=== PATIENT | female | born 1940 | race African-American/Black ===

== ENCOUNTER 2017-08-03 13:33 | Outpatient (CLI) | payer MEDICARE ==
--- NOTE | 2017-08-03 15:43 | RAD ---
RIGHT KNEE FOUR VIEWS: 08/03/17 HISTORY: Right knee pain. FINDINGS/IMPRESSION: Comparison made with exam of 05/01/05. Marked degenerative changes are present with interval worsening since the comparative study. No acute fracture, dislocation or bony destruction is identified. POS: [facility]
--- NOTE | 2017-08-03 15:45 | RAD ---
LEFT KNEE FOUR VIEWS: 08/03/17 HISTORY: Left knee pain. FINDINGS/IMPRESSION: There are marked degenerative changes in the left knee with interval worsening since 05/01/05. No acu te fracture, dislocation or bony destruction is identified. POS: [facility]
== END 2017-08-03 13:34 | disposition home or self-care (01) ==
LOC: RAD-FRANK 13:33
PROVIDERS: ATTEND Internal Medicine
DX: M17.0 Bilateral primary osteoarthritis of knee (principal)

== ENCOUNTER 2018-04-17 20:30 | Outpatient (CLI) | payer MEDICARE | END 2018-04-17 20:31 | disposition home or self-care (01) | LOC: SLEEPLAB 20:30 | PROVIDERS: ATTEND Internal Medicine Pulmonary Disease | DX: G47.33 Obstructive sleep apnea (adult) (pediatric) (principal); R06.83 Snoring; G47.00 Insomnia, unspecified; E66.9 Obesity, unspecified; Z68.41 Body mass index [BMI] 40.0-44.9, adult | CPT/HCPCS: 95811 ==

== ENCOUNTER 2018-04-20 19:07 | Emergency (ER) | payer MEDICARE, OTHER ==
[2018-04-20 19:48] LABS: #Eosinphils 0.2 thou/uL (0.0-0.7); #Lymphocytes 1.7 thou/uL (1.20-3.40); #Monocytes 0.9 thou/uL (0.11-0.59); #Neutrophils 5.3 thou/uL (1.40-6.50); %Basophils 0.3 % (0.0-1.0); %Lymphocytes 21.2 % (21.0-51.0); %Monocytes 10.5 % (0.0-10.0); %Neutrophils 64.9 % (42.0-75.0); Hemoglobin 8.9 g/dL (12.0-16.0); Mean Corpuscular HGB CONC 31.8 g/dL (32.0-36.0); Mean Corpuscular Hemoglobin 38.2 pg (27.0-31.0); Mean Platelet Volume 7.1 fL (7.4-10.4); Platelet Count 228 thou/uL (130-400); RBC Distribution Width 13.9 % (11.5-14.5); Red Blood Cell (RBC) Count 2.33 mill/uL (4.20-5.40); White Blood Cell (WBC) Count 8.2 thou/uL (4.8-10.8)
--- NOTE | 2018-04-20 19:59 | RAD ---
AP VIEW CHEST: 04/20/18 HISTORY: Sudden right upper quadrant pain. AP view chest is obtained on 04/20/18. Comparison made to previous exam of 01/28/17. AP view chest demonstrates cardiomegaly. Pulmonary vascular congestion is seen. No evidence of effusi ons, pneumonia or pneumothorax seen. 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 IMPRESSION: Cardiomegaly and pulmonary vascular congestion. POS: [facility]
[2018-04-20 20:03] LABS: ALT (SGPT) Less than 7 U/L (8-55); AST (SGOT) 10 U/L (5-34); Albumin 3.8 g/dL (3.4-4.8); Alkaline Phosphatase 90 U/L (40-150); Anion Gap 9 mmol/L (10-20); BUN (Urea Nitrogen) 29 mg/dL (9.8-20.1); Bilirubin, Total 0.9 mg/dL (0.2-1.2); Calc. Creatinine Clearance 0 mL/min (70-130); Calcium 8.5 mg/dL (7.8-10.44); Carbon Dioxide 25 mmol/L (23-31); Chloride 108 mmol/L (98-107); Estimated GFR-MDRD 29; Globulin 3.3 g/dL (2.4-3.5); Glucose 118 mg/dL (83-110); Lipase 31 U/L (8-78); Potassium 4.4 mmol/L (3.5-5.1); Protein, Total 7.1 g/dL (6.0-8.3); Sodium 138 mmol/L (136-145)
[2018-04-20 20:08] LABS: CKMB 0.8 ng/mL (0-6.6); Troponin I Less than 0.010 ng/mL (< 0.028)
[2018-04-20 20:19] LABS: Bilirubin Negative (Negative); Blood, Urine Small (Negative); Clarity CLOUDY (Clear); Glucose, Urine (Dipstick) Negative (Negative); Leukocyte Small (Negative); Nitrite Negative (Negative); Protein, Urine (Dipstick) Trace mg/dL (Neg-Trace); Specific Gravity, Urine 1.013 (1.002-1.036); pH, Urine 5.5 (5.0-9.0)
[2018-04-20 20:20] LABS: Bacteria/HPF None Seen HPF (None Seen); Hyaline Casts/LPF 0-3 HYALINE CAST LPF (0-3 Hyaline); Pathc Cast-AUWi Flag 0.29 (0-2.49)
[2018-04-20 20:23] LABS: MDiff Complete? YES; Macrocytosis SLIGHT = 6-15 cells (100X) (0-5/hpf); Ovalocytes SLIGHT = 2-5 cells (100X) (0-1/hpf); PLT Morphology Comment Appears Adequate; Polychromasia SLIGHT = 2-3 cells (100X) (0-2/hpf); Schistocytes SLIGHT = 2-5 cells (100X) (0-1/hpf)
--- NOTE | 2018-04-22 17:50 | EKG ---
Test Reason : Blood Pressure : / mmHG Vent. Rate : 067 BPM Atrial Rate : 067 BPM P-R Int : 156 ms QRS Dur : 092 ms QT Int : 436 ms P-R-T Axes : 034 021 046 degrees QTc Int : 460 ms Normal sinus rhythm with sinus arrhythmia Normal ECG Confirmed by DANIEL HARDY ([id number]), news editor TACOS SULLIVAN ([id number] on 04/22/2018 5:49:11 PM Referred By: Confirmed By:DANIEL HARDY
== END 2018-04-20 21:26 | disposition home or self-care (01) ==
LOC: ERS 19:07
DX: R10.11 Right upper quadrant pain (principal); E78.5 Hyperlipidemia, unspecified; I25.10 Atherosclerotic heart disease of native coronary artery without angina pectoris; E03.9 Hypothyroidism, unspecified; E11.9 Type 2 diabetes mellitus without complications; I10 Essential (primary) hypertension; J18.9 Pneumonia, unspecified organism; F41.9 Anxiety disorder, unspecified
CPT/HCPCS: 36415; 71045; 80053; 81003; 81015; 82553; 83690; 84484; 85025; 93005

== ENCOUNTER 2018-07-08 22:06 | Emergency (ER) | payer MEDICARE, OTHER ==
[2018-07-08 23:10] LABS: INR-International Normal Ratio 1.2; PTT 29.2 SEC (22.9-36.1); Prothrombin Time 15.3 SEC (12.0-14.7)
[2018-07-08 23:25] LABS: ALT (SGPT) Less than 7 U/L (8-55); AST (SGOT) 8 U/L (5-34); Albumin 3.6 g/dL (3.4-4.8); Alkaline Phosphatase 93 U/L (40-150); Anion Gap 11 mmol/L (10-20); BUN (Urea Nitrogen) 20 mg/dL (9.8-20.1); Bilirubin, Total 0.7 mg/dL (0.2-1.2); Calc. Creatinine Clearance 0 mL/min (70-130); Calcium 8.5 mg/dL (7.8-10.44); Carbon Dioxide 24 mmol/L (23-31); Chloride 110 mmol/L (98-107); Estimated GFR-MDRD 32; Globulin 3.1 g/dL (2.4-3.5); Glucose 114 mg/dL (83-110); Potassium 4.2 mmol/L (3.5-5.1); Protein, Total 6.7 g/dL (6.0-8.3); Sodium 141 mmol/L (136-145)
[2018-07-08 23:29] LABS: #Eosinphils 0.4 thou/uL (0.0-0.7); #Lymphocytes 1.9 thou/uL (1.20-3.40); #Monocytes 0.7 thou/uL (0.11-0.59); #Neutrophils 6.2 thou/uL (1.40-6.50); %Basophils 0.3 % (0.0-1.0); %Lymphocytes 20.2 % (21.0-51.0); %Monocytes 8.1 % (0.0-10.0); %Neutrophils 67.4 % (42.0-75.0); Hemoglobin 9.6 g/dL (12.0-16.0); MDiff Complete? YES; Macrocytosis SLIGHT = 6-15 cells (100X) (0-5/hpf); Mean Corpuscular HGB CONC 33.6 g/dL (32.0-36.0); Mean Corpuscular Hemoglobin 39.1 pg (27.0-31.0); Mean Platelet Volume 6.8 fL (7.4-10.4); Platelet Count 242 thou/uL (130-400); Platelet Morphology Comment Appears Adequate; RBC Distribution Width 12.6 % (11.5-14.5); Red Blood Cell (RBC) Count 2.45 mill/uL (4.20-5.40); White Blood Cell (WBC) Count 9.1 thou/uL (4.8-10.8)
--- NOTE | 2018-07-08 23:37 | CT ---
BRAIN CT WITHOUT IV CONTRAST: HISTORY: Injury following a fall hitting head on bathtub. COMPARISON: 03/08/14. FINDINGS: No focal mass or midline shift. No intra or extra-axial hemorrhage. Sinuses and mastoids are clear of acute process. IMPRESSION: No significant acute intracranial process. No mass or bleed. POS: [facility]
--- NOTE | 2018-07-08 23:56 | RAD ---
LEFT HIP TWO VIEWS: 07/08/18 HISTORY: Left hip injury following a fall. Left hip joint arthrosis. No acute fracture or dislocation. IMPRESSION: Arthrosis and degenerative change without fracture or dislocation. POS: [facility]
[2018-07-09] MEDS ORDERED: Morphine 4 MG/ML VIAL ONE (00:14)
[2018-07-09] MEDS ORDERED: Acetaminophen 325 MG TAB ONE (00:15)
--- NOTE | 2018-07-09 07:22 | RAD ---
LEFT KNEE 4 VIEWS: Date: 07/08/18 INDICATION: Fall with left knee pain. COMPARISON: 08/03/17. IMPRESSION: No acute osseous abnormality is evident. Advanced osteoarthritic change of the left knee with mild va renee malalignment is stable. POS: [facility]
--- NOTE | 2018-07-09 07:23 | RAD ---
RIGHT KNEE 4 VIEWS: Date: 07/08/18 INDICATION: History of fall with right knee pain. COMPARISON: 08/03/17. IMPRESSION: There is advanced osteoarthritic change of the right knee with mild varus malalignment. No acute frac ture or subluxation is evident. POS: [facility]
== END 2018-07-09 00:43 | disposition home or self-care (01) ==
LOC: ERS 22:06
DX: S00.83XA Contusion of other part of head, initial encounter (principal); M17.11 Unilateral primary osteoarthritis, right knee; M25.512 Pain in left shoulder; E78.5 Hyperlipidemia, unspecified; I25.10 Atherosclerotic heart disease of native coronary artery without angina pectoris; E03.9 Hypothyroidism, unspecified; E11.9 Type 2 diabetes mellitus without complications; D64.9 Anemia, unspecified; Z86.711 Personal history of pulmonary embolism; W19.XXXA Unspecified fall, initial encounter
CPT/HCPCS: 36415; 70450; 80053; 85025; 85610; 85730; 93005; 96374; J2270

== ENCOUNTER 2019-05-01 10:21 | Emergency (ER) | payer MEDICARE, OTHER ==
[2019-05-01 11:17] LABS: #Basophils 0.1 thou/uL (0.0-0.2); #Eosinphils 0.2 thou/uL (0.0-0.7); #Lymphocytes 1.4 thou/uL (1.20-3.40); #Monocytes 0.6 thou/uL (0.11-0.59); #Neutrophils 3.8 thou/uL (1.40-6.50); %Basophils 0.8 % (0.0-1.0); %Eosinophils 3.6 % (0.0-10.0); %Lymphocytes 23.3 % (21.0-51.0); %Monocytes 10.2 % (0.0-10.0); %Neutrophils 62.1 % (42.0-75.0); Hemoglobin 9.6 g/dL (12.0-16.0); Mean Corpuscular HGB CONC 34.8 g/dL (32.0-36.0); Mean Corpuscular Hemoglobin 37.6 pg (27.0-31.0); Mean Platelet Volume 6.7 fL (7.4-10.4); Platelet Count 261 thou/uL (130-400); RBC Distribution Width 13.3 % (11.5-14.5); Red Blood Cell (RBC) Count 2.54 mill/uL (4.20-5.40); White Blood Cell (WBC) Count 6.2 thou/uL (4.8-10.8)
[2019-05-01 11:28] LABS: Bilirubin Negative (Negative); Blood, Urine 3+ (Negative); Clarity Turbid (Clear); Glucose, Urine (Dipstick) Normal (Negative); Leukocyte 250 Leu/uL (Negative); Nitrite Negative (Negative); Protein, Urine (Dipstick) 30 mg/dL (Neg-Trace); RBC/HPF Greater than 50 HPF (0-3); Squamous Epithelial 0-3 HPF (0-3); Urobilinogen Normal mg/dL (Less than 2); WBC/HPF Greater than 50 HPF (0-3)
[2019-05-01 11:30] LABS: MDiff Complete? YES; Macrocytosis SLIGHT = 6-15 cells (100X) (0-5/hpf); Platelet Morphology Comment Appears Adequate; Polychromasia SLIGHT = 2-3 cells (100X) (0-2/hpf); Schistocytes SLIGHT = 2-5 cells (100X) (0-1/hpf)
[2019-05-01 11:39] LABS: ALT (SGPT) Less than 7 U/L (8-55); AST (SGOT) 10 U/L (5-34); Albumin 3.6 g/dL (3.4-4.8); Alkaline Phosphatase 84 U/L (40-110); Anion Gap 9 mmol/L (10-20); BUN (Urea Nitrogen) 26 mg/dL (9.8-20.1); Bilirubin, Total 0.7 mg/dL (0.2-1.2); Calc. Creatinine Clearance 0 mL/min (70-130); Calcium 8.6 mg/dL (7.8-10.44); Carbon Dioxide 26 mmol/L (23-31); Chloride 110 mmol/L (98-107); Estimated GFR-MDRD 27; Globulin 3.2 g/dL (2.4-3.5); Glucose 90 mg/dL (83-110); Potassium 4.9 mmol/L (3.5-5.1); Protein, Total 6.8 g/dL (6.0-8.3); Sodium 140 mmol/L (136-145)
[2019-05-01 11:41] LABS: Bacteria/HPF 2+ HPF (None Seen); Yeast-Budding 3+ HPF (None Seen)
--- NOTE | 2019-05-01 12:33 | CT ---
CT Stone Protocol History: Abdominal pain Comparison: None. Findings: 4 mm perifissural nodule left major fissure. Scattered smaller right major fissure. Fissura l nodules. The aortic contour is nonaneurysmal. Cholelithiasis without evidence of cholecystitis. Complex left renal mass with peripheral hyperdensity and internal septations calcifications. Right interpolar renal cysts and inferior pole hypodensity also likely a cyst. No nephroureterolithiasis or hydroureteronephrosis. There is a heterogeneous mass off the posterior uterus which may reflect a pedunculated fibroid versu s an adnexal mass. Multiple anterior pedunculated uterine masses may reflect pedunculated fibroids. Endometrium appears to be thickened. The appendix is felt to be visualized and appears normal. No dilated loops of large or small bowel. Moderate facet arthropathy of the lumbar spine. Abnormal mi xed lytic and sclerotic appearance of the left ilium. There is also abnormal mixed lytic and sclerotic appearance of the left superior pubic ramus. Impression: 1. No nephroureterolithiasis or hydroureteronephrosis. No secondary evidence of a recently passed sto ne. 2. Cystic mass left kidney for which nonemergent ultrasound or renal protocol CT/MRI is recommended. 3. Cholelithiasis without cholecystitis. 4. Multiple likely mass of the enlarged uterus may reflect fibroids, some of which contain calcificat ions. There is also abnormal endometrial thickening. Nonemergent pelvic ultrasound recommended. 5. 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
== END 2019-05-01 13:49 | disposition home or self-care (01) ==
LOC: ERS 10:21
DX: D25.9 Leiomyoma of uterus, unspecified (principal); N28.1 Cyst of kidney, acquired; N39.0 Urinary tract infection, site not specified; F41.9 Anxiety disorder, unspecified; E78.5 Hyperlipidemia, unspecified; E78.00 Pure hypercholesterolemia, unspecified; I25.10 Atherosclerotic heart disease of native coronary artery without angina pectoris; E03.9 Hypothyroidism, unspecified; E11.9 Type 2 diabetes mellitus without complications; I10 Essential (primary) hypertension; D51.0 Vitamin B12 deficiency anemia due to intrinsic factor deficiency; Z86.711 Personal history of pulmonary embolism; Z79.899 Other long term (current) drug therapy
CPT/HCPCS: 36415; 51701; 74176; 80053; 81003; 81015; 85025; 87086; A4353

== ENCOUNTER 2019-11-08 16:53 | Emergency (ER) | payer MEDICARE, OTHER ==
[~2019-11-08 16:53] MED LIST: Iopamidol-370 76% 500 ML 1 ML ONE
[2019-11-08 17:59] LABS: #Eosinphils 0.2 thou/uL (0.0-0.7); #Lymphocytes 1.3 thou/uL (1.20-3.40); #Monocytes 0.8 thou/uL (0.11-0.59); #Neutrophils 6.3 thou/uL (1.40-6.50); %Basophils 0.3 % (0.0-1.0); %Eosinophils 2.4 % (0.0-10.0); %Lymphocytes 15.4 % (21.0-51.0); %Monocytes 9.7 % (0.0-10.0); %Neutrophils 72.2 % (42.0-75.0); Hemoglobin 9.8 g/dL (12.0-16.0); Mean Corpuscular HGB CONC 33.3 g/dL (32.0-36.0); Mean Corpuscular Hemoglobin 36.9 pg (27.0-31.0); Mean Platelet Volume 6.8 fL (7.4-10.4); Platelet Count 275 thou/uL (130-400); RBC Distribution Width 14.9 % (11.5-14.5); Red Blood Cell (RBC) Count 2.64 mill/uL (4.20-5.40); White Blood Cell (WBC) Count 8.7 thou/uL (4.8-10.8)
[2019-11-08 18:15] LABS: MDiff Complete? YES; Macrocytosis SLIGHT = 6-15 cells (100X) (0-5/hpf); Platelet Morphology Comment Appears Adequate; Polychromasia SLIGHT = 2-3 cells (100X) (0-2/hpf)
--- NOTE | 2019-11-08 18:22 | RAD ---
CHEST ONE VIEW: 11/08/19 HISTORY: Dyspnea. COMPARISON: 04/20/18. FINDINGS: The cardiac silhouette is magnified and upper limits of normal in size. Pulmonary vasculature also up per limits of normal. Mediastinum is midline. No lobar consolidation or evidence of pneumothorax. Degenerative changes of the shoulders apparent. senior premium auditor leads overlie the chest. IMPRESSION: Borderline cardiomegaly. Chronic type findings are stable. POS: [facility]
[2019-11-08 18:24] LABS: ALT (SGPT) Less than 7 U/L (8-55); AST (SGOT) 10 U/L (5-34); Albumin 3.5 g/dL (3.4-4.8); Alkaline Phosphatase 92 U/L (40-110); Anion Gap 13 mmol/L (10-20); BUN (Urea Nitrogen) 19 mg/dL (9.8-20.1); Bilirubin, Total 0.8 mg/dL (0.2-1.2); Calc. Creatinine Clearance 0 mL/min (70-130); Calcium 8.7 mg/dL (7.8-10.44); Carbon Dioxide 22 mmol/L (23-31); Chloride 109 mmol/L (98-107); Estimated GFR-MDRD 31; Globulin 3.3 g/dL (2.4-3.5); Glucose 104 mg/dL (83-110); Lipase 29 U/L (8-78); Potassium 4.7 mmol/L (3.5-5.1); Protein, Total 6.8 g/dL (6.0-8.3); Sodium 139 mmol/L (136-145)
--- NOTE | 2019-11-08 19:59 | CT ---
CT ANGIOGRAM CHEST WITH CONTRAST: 11/08/19 HISTORY: Chest pain. History of pulmonary embolism. COMPARISON: Reference is made to radiograph same day. FINDINGS: CT angiogram chest performed after the intravenous administration of contrast. 3D rendering provided. 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 Pulmonary tr unk is markedly dilated. The right and left main pulmonary arteries are markedly dilated. Heart size is enlarged. No pulmonary embolism. Limited evaluation of the upper abdomen is unremarkable. Mild atelectasis within the lung bases. No confluent air space consolidation, pneumothorax or effusio n. No acute thoracic spine abnormality. No acute displaced rib fracture. IMPRESSION: 1. No pulmonary embolism. 2. Pulmonary hypertension. 3. 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 Nonemergency ENT consultation is advised. POS: [facility]
--- NOTE | 2019-11-11 12:10 | EKG ---
Test Reason : Blood Pressure : / mmHG Vent. Rate : 061 BPM Atrial Rate : 061 BPM P-R Int : 200 ms QRS Dur : 088 ms QT Int : 444 ms P-R-T Axes : 061 025 060 degrees QTc Int : 446 ms Normal sinus rhythm Normal ECG Confirmed by SAUL ALFONSO DO ([id number]), editor managing director RANDY GARCIA ([id number]) on 11/11/2019 12:10:20 PM Referred By: Confirmed By:SAUL ALFONSO DO
== END 2019-11-08 20:20 | disposition home or self-care (01) ==
LOC: ERS 16:53
DX: R22.1 Localized swelling, mass and lump, neck (principal); Z86.711 Personal history of pulmonary embolism; I25.10 Atherosclerotic heart disease of native coronary artery without angina pectoris; E03.9 Hypothyroidism, unspecified; E11.9 Type 2 diabetes mellitus without complications; I10 Essential (primary) hypertension; F41.9 Anxiety disorder, unspecified; Z79.899 Other long term (current) drug therapy
CPT/HCPCS: 36415; 71045; 71275; 80053; 83690; 83880; 84484; 85025; 85379; 93005; Q9967

== ENCOUNTER 2020-02-08 16:28 | Emergency (ER) | payer MEDICARE, OTHER ==
[2020-02-08 17:02] LABS: #Eosinphils 0.1 thou/uL (0.0-0.7); #Monocytes 0.8 thou/uL (0.11-0.59); #Neutrophils 8.1 thou/uL (1.40-6.50); %Basophils 0.5 % (0.0-1.0); %Eosinophils 0.6 % (0.0-10.0); %Lymphocytes 10.3 % (21.0-51.0); %Monocytes 8.1 % (0.0-10.0); %Neutrophils 80.6 % (42.0-75.0); Hemoglobin 9.5 g/dL (12.0-16.0); Mean Corpuscular HGB CONC 32.9 g/dL (32.0-36.0); Mean Corpuscular Hemoglobin 34.9 pg (27.0-31.0); Mean Platelet Volume 7.2 fL (7.4-10.4); Platelet Count 259 thou/uL (130-400); RBC Distribution Width 12.8 % (11.5-14.5); Red Blood Cell (RBC) Count 2.72 mill/uL (4.20-5.40)
--- NOTE | 2020-02-08 17:18 | RAD ---
Exam: Chest one view HISTORY:Dyspnea. COPD. Comparison: 11/08/2019 FINDINGS: Cardiac silhouette:Markedly large cardiac silhouette. There appears be an increased density which may be projecting over the cardiac silhouette. Better interrogation with a chest CT of 2 view chest radiograph is recommended Aorta: Elongation Pulmonary vessels: Normal Costophrenic angles: Clear LUNGS: Chronic lung parenchymal changes. No consolidation or mass. Pneumothorax: None Osseous abnormalities: None IMPRESSION: 1. Increased cardiac silhouette with a possible density projecting over the heart border. 2 view ches t radiograph versus chest CT is recommended for better interrogation.
[2020-02-08] MEDS ORDERED: Albuterol 200 PUFF (6.7GM INHALER) ONE (17:22)
[2020-02-08 17:25] LABS: ALT (SGPT) 8 U/L (8-55); AST (SGOT) 20 U/L (5-34); Albumin 3.7 g/dL (3.4-4.8); Alkaline Phosphatase 82 U/L (40-110); Anion Gap 14 mmol/L (10-20); BUN (Urea Nitrogen) 33 mg/dL (9.8-20.1); Bilirubin, Total 0.4 mg/dL (0.2-1.2); Calc. Creatinine Clearance 0 mL/min (70-130); Calcium 8.2 mg/dL (7.8-10.44); Carbon Dioxide 19 mmol/L (23-31); Chloride 110 mmol/L (98-107); Estimated GFR-MDRD 27; Globulin 3.3 g/dL (2.4-3.5); Glucose 97 mg/dL (83-110); Potassium 5.3 mmol/L (3.5-5.1); Sodium 138 mmol/L (136-145)
[2020-02-08 18:06] LABS: MDiff Complete? YES; Macrocytosis SLIGHT = 6-15 cells (100X) (0-5/hpf); Platelet Morphology Comment Appears Adequate
== END 2020-02-08 19:30 | disposition home or self-care (01) ==
LOC: ERS 16:28
DX: J18.9 Pneumonia, unspecified organism (principal); E78.5 Hyperlipidemia, unspecified; E78.00 Pure hypercholesterolemia, unspecified; E03.9 Hypothyroidism, unspecified; I10 Essential (primary) hypertension; J45.909 Unspecified asthma, uncomplicated; E11.9 Type 2 diabetes mellitus without complications; F41.9 Anxiety disorder, unspecified; Z79.899 Other long term (current) drug therapy
CPT/HCPCS: 36415; 71045; 80053; 83880; 84484; 85025; 85379; 93005; 94664; 94760

== ENCOUNTER 2021-07-14 14:23 | Outpatient (CLI) | payer MEDICARE, OTHER | END 2021-07-14 14:24 | disposition home or self-care (01) | LOC: BICRAD 14:23 | PROVIDERS: ATTEND Internal Medicine Nephrology | DX: N18.4 Chronic kidney disease, stage 4 (severe) (principal) | CPT/HCPCS: 71046 ==

== ENCOUNTER 2021-08-10 19:43 | Emergency (ER) | payer MEDICARE, OTHER ==
[2021-08-10] MEDS ORDERED: predniSONE 20 MG TAB ONE (21:10)
[2021-08-10] MEDS ORDERED: Acetaminophen/Codeine 30-300mg Tablet ONE (21:10)
[2021-08-10] MEDS ORDERED: Ketorolac Tromethamine 30 MG/ML VIAL ONE (21:10)
== END 2021-08-10 21:20 | disposition home or self-care (01) ==
LOC: ERS 19:43
DX: M17.11 Unilateral primary osteoarthritis, right knee (principal); M19.041 Primary osteoarthritis, right hand; E78.5 Hyperlipidemia, unspecified; E78.00 Pure hypercholesterolemia, unspecified; I25.10 Atherosclerotic heart disease of native coronary artery without angina pectoris; E03.9 Hypothyroidism, unspecified; J44.9 Chronic obstructive pulmonary disease, unspecified; Z86.711 Personal history of pulmonary embolism; Z79.01 Long term (current) use of anticoagulants; Z79.899 Other long term (current) drug therapy
CPT/HCPCS: 96372; 99283; J1885; J7512

== ENCOUNTER 2021-10-06 14:44 | Outpatient (CLI) | payer OTHER | END 2021-10-06 14:45 | disposition home or self-care (01) | LOC: BICCT 14:44 | PROVIDERS: ATTEND Urology | DX: N28.1 Cyst of kidney, acquired (principal); K80.20 Calculus of gallbladder without cholecystitis without obstruction; K57.30 Diverticulosis of large intestine without perforation or abscess without bleeding; D25.9 Leiomyoma of uterus, unspecified | CPT/HCPCS: 74176 ==

== ENCOUNTER 2021-10-30 16:32 | Inpatient (IN) | payer MEDICARE, MEDICAID ==
[2021-10-30] MEDS ORDERED: predniSONE 20 MG TAB ONE (18:25)
[2021-10-30 18:46] LABS: Hemoglobin 9.3 g/dL (12.0-16.0); Mean Corpuscular HGB CONC 32.2 g/dL (32.0-36.0); Mean Corpuscular Hemoglobin 31.9 pg (27.0-31.0); Platelet Count 286 thou/uL (130-400); RBC Distribution Width 15.5 % (11.5-14.5); Red Blood Cell (RBC) Count 2.92 mill/uL (4.20-5.40); White Blood Cell (WBC) Count 5.2 thou/uL (4.8-10.8)
[2021-10-30 19:01] LABS: Anisocytosis SLIGHT = 6-15 cells (100X) (0-5/hpf); Band 4 % (5-11); Eosinophils 5 % (0-10); Lymphocytes 22 % (21-51); MDiff Complete? YES; Monocytes 15 % (0-10); Neutrophil 52 % (42-75); Ovalocytes SLIGHT = 2-5 cells (100X) (0-1/hpf); Platelet Morphology Comment Appears Adequate; Polychromasia SLIGHT = 2-3 cells (100X) (0-2/hpf)
[2021-10-30 19:24] LABS: ALT (SGPT) Less than 7 U/L (8-55); AST (SGOT) 12 U/L (5-34); Albumin 3.5 g/dL (3.4-4.8); Alkaline Phosphatase 81 U/L (40-110); Anion Gap 15 mmol/L (10-20); BUN (Urea Nitrogen) 29 mg/dL (9.8-20.1); Bilirubin, Total 0.2 mg/dL (0.2-1.2); Calc. Creatinine Clearance 0 mL/min (70-130); Calcium 7.9 mg/dL (7.8-10.44); Carbon Dioxide 18 mmol/L (23-31); Chloride 112 mmol/L (98-107); Globulin 3.4 g/dL (2.4-3.5); Glucose 88 mg/dL (83-110); Potassium 5.6 mmol/L (3.5-5.1); Protein, Total 6.9 g/dL (5.8-8.1); Sodium 139 mmol/L (136-145)
[2021-10-30] MEDS ORDERED: Magnesium 2 GM/50 ML(in water) 2 GM in Premix Bag 1 BAG IVPB SCH (19:30)
[2021-10-30] MEDS ORDERED: Calcium Gluc 4.6 MEQ/10 ML (100 MG/ML) ONE (20:07)
[2021-10-30] MEDS ORDERED: Furosemide 40 MG/4 ML VIAL ONE (20:07)
[2021-10-30] MEDS ORDERED: Ondansetron ODT 4 MG TAB PO PRN (21:43)
[2021-10-30] MEDS ORDERED: Acetaminophen 650 MG Suppository PR PRN (21:43)
[2021-10-30] MEDS ORDERED: Acetaminophen 325 MG TAB PO PRN (21:43)
[2021-10-30] MEDS ORDERED: Ondansetron PF 4 MG/2 ML Vial IVP PRN (21:43)
[2021-10-30] MEDS ORDERED: methylPREDNISolone Sod Succ 40 MG VIAL IVP SCH (22:00)
[2021-10-30 22:25] VITALS: BMI 45.1
[2021-10-30 22:51] LABS: Troponin I 0.017 ng/mL (< 0.028)
[2021-10-30] MEDS: cefTRIAXone\\ROCEPHIN 1 GM in Sodium Chloride 0.9% 100 ML IVPB SCH (23:11)
[2021-10-31 02:09] LABS: Troponin I 0.012 ng/mL (< 0.028)
[2021-10-31 04:48] LABS: #Lymphocytes 0.9 thou/uL (1.20-3.40); #Neutrophils 3.6 thou/uL (1.40-6.50); %Basophils 0.3 % (0.0-1.0); %Eosinophils 0.2 % (0.0-10.0); %Lymphocytes 19.5 % (21.0-51.0); %Monocytes 0.7 % (0.0-10.0); %Neutrophils 79.3 % (42.0-75.0); Hemoglobin 9.1 g/dL (12.0-16.0); Mean Corpuscular HGB CONC 32.8 g/dL (32.0-36.0); Mean Corpuscular Hemoglobin 32.5 pg (27.0-31.0); Mean Platelet Volume 6.5 fL (7.4-10.4); Platelet Count 260 thou/uL (130-400); RBC Distribution Width 15.3 % (11.5-14.5); Red Blood Cell (RBC) Count 2.81 mill/uL (4.20-5.40); White Blood Cell (WBC) Count 4.6 thou/uL (4.8-10.8)
[2021-10-31 05:06] LABS: Anion Gap 13 mmol/L (10-20); BUN (Urea Nitrogen) 29 mg/dL (9.8-20.1); Calc. Creatinine Clearance 26 mL/min (70-130); Calcium 8.3 mg/dL (7.8-10.44); Carbon Dioxide 16 mmol/L (23-31); Chloride 112 mmol/L (98-107); Glucose 161 mg/dL (83-110); Potassium 5.7 mmol/L (3.5-5.1); Sodium 135 mmol/L (136-145)
[2021-10-31] MEDS ORDERED: Levothyroxine Sodium 50 MCG TAB PO SCH (07:15)
[2021-10-31] MEDS: Aspirin 81 mg Enteric Coated Tablet PO SCH (08:48)
[2021-10-31] MEDS: LOKELMA 10 GM PACKET PO SCH ×3 (08:48→20:23)
[2021-10-31] MEDS: Montelukast Sodium 10 mg Tablet PO SCH (08:48)
[2021-10-31] MEDS: Apixaban 2.5 MG TAB PO SCH ×2 (08:49→20:22)
[2021-10-31] MEDS ORDERED: Furosemide 20 MG TAB PO SCH (09:00)
[2021-10-31] MEDS ORDERED: methylPREDNISolone Sod Succ 40 MG VIAL IVP SCH (09:00)
[2021-10-31] MEDS ORDERED: Azithromycin 250 MG TAB PO SCH (15:45)
[2021-10-31 16:03] LABS: Potassium 5.1 mmol/L (3.5-5.1)
[2021-10-31] MEDS: Mometasone 100 MCG/Formoterol 5 MCG 120 PUFF INHALER INH SCH (18:41)
[2021-10-31] MEDS: cefTRIAXone\\ROCEPHIN 1 GM in Sodium Chloride 0.9% 100 ML IVPB SCH (21:08)
[2021-10-31 23:30] LABS: #Lymphocytes 0.9 thou/uL (1.20-3.40); #Monocytes 0.5 thou/uL (0.11-0.59); #Neutrophils 6.5 thou/uL (1.40-6.50); %Basophils 0.1 % (0.0-1.0); %Eosinophils 0.1 % (0.0-10.0); %Lymphocytes 10.9 % (21.0-51.0); %Monocytes 5.9 % (0.0-10.0); Mean Corpuscular HGB CONC 33.5 g/dL (32.0-36.0); Mean Corpuscular Hemoglobin 33.1 pg (27.0-31.0); Mean Corpuscular Volume 98.9 fL (78.0-98.0); Mean Platelet Volume 6.3 fL (7.4-10.4); Platelet Count 252 thou/uL (130-400); RBC Distribution Width 15.2 % (11.5-14.5); Red Blood Cell (RBC) Count 2.73 mill/uL (4.20-5.40); White Blood Cell (WBC) Count 7.9 thou/uL (4.8-10.8)
[2021-10-31 23:45] LABS: Anion Gap 14 mmol/L (10-20); BUN (Urea Nitrogen) 40 mg/dL (9.8-20.1); Calc. Creatinine Clearance 25 mL/min (70-130); Calcium 8.1 mg/dL (7.8-10.44); Carbon Dioxide 18 mmol/L (23-31); Chloride 108 mmol/L (98-107); Glucose 117 mg/dL (83-110); Potassium 5.2 mmol/L (3.5-5.1); Sodium 135 mmol/L (136-145)
[2021-11-01 04:31] LABS: #Lymphocytes 1.1 thou/uL (1.20-3.40); #Monocytes 0.6 thou/uL (0.11-0.59); #Neutrophils 6.9 thou/uL (1.40-6.50); %Basophils 0.4 % (0.0-1.0); %Eosinophils 0.2 % (0.0-10.0); %Lymphocytes 12.5 % (21.0-51.0); %Monocytes 6.8 % (0.0-10.0); %Neutrophils 80.1 % (42.0-75.0); Hemoglobin 8.9 g/dL (12.0-16.0); Mean Corpuscular Hemoglobin 32.3 pg (27.0-31.0); Mean Corpuscular Volume 97.9 fL (78.0-98.0); Mean Platelet Volume 6.1 fL (7.4-10.4); Platelet Count 253 thou/uL (130-400); RBC Distribution Width 15.2 % (11.5-14.5); Red Blood Cell (RBC) Count 2.77 mill/uL (4.20-5.40); White Blood Cell (WBC) Count 8.6 thou/uL (4.8-10.8)
[2021-11-01 04:51] LABS: Anion Gap 13 mmol/L (10-20); BUN (Urea Nitrogen) 41 mg/dL (9.8-20.1); Calc. Creatinine Clearance 25 mL/min (70-130); Calcium 8.2 mg/dL (7.8-10.44); Carbon Dioxide 19 mmol/L (23-31); Chloride 110 mmol/L (98-107); Glucose 110 mg/dL (83-110); Sodium 137 mmol/L (136-145)
[2021-11-01] MEDS: Levothyroxine Sodium 50 MCG TAB PO SCH (05:18)
[2021-11-01] MEDS: Albumin 25% 25 GM/100 ML BOT IVPB SCH ×4 (05:19→21:34)
[2021-11-01] MEDS: Mometasone 100 MCG/Formoterol 5 MCG 120 PUFF INHALER INH SCH ×2 (07:26→19:43)
[2021-11-01] MEDS: predniSONE 20 MG TAB PO SCH (08:46)
[2021-11-01] MEDS: Azithromycin 250 MG TAB PO SCH (08:47)
[2021-11-01] MEDS: Ferrous Sulfate 325 MG TAB PO SCH ×2 (08:48→16:00)
[2021-11-01] MEDS: Apixaban 2.5 MG TAB PO SCH ×2 (08:48→21:34)
[2021-11-01] MEDS: Montelukast Sodium 10 mg Tablet PO SCH (08:48)
[2021-11-01] MEDS: Aspirin 81 mg Enteric Coated Tablet PO SCH (08:48)
[2021-11-01] MEDS: LOKELMA 10 GM PACKET PO SCH ×3 (08:49→21:41)
[2021-11-01] MEDS ORDERED: Epoetin (ESRD) 10,000 UNITS/ML VIAL SC SCH (09:00)
[2021-11-01] MEDS: cefTRIAXone\\ROCEPHIN 1 GM in Sodium Chloride 0.9% 100 ML IVPB SCH (21:34)
[2021-11-02 04:54] LABS: #Monocytes 0.4 thou/uL (0.11-0.59); #Neutrophils 5.4 thou/uL (1.40-6.50); %Basophils 0.3 % (0.0-1.0); %Eosinophils 0.1 % (0.0-10.0); %Lymphocytes 13.9 % (21.0-51.0); %Monocytes 6.4 % (0.0-10.0); %Neutrophils 79.3 % (42.0-75.0); Hemoglobin 8.5 g/dL (12.0-16.0); Mean Corpuscular HGB CONC 32.9 g/dL (32.0-36.0); Mean Corpuscular Hemoglobin 32.5 pg (27.0-31.0); Mean Corpuscular Volume 98.7 fL (78.0-98.0); Mean Platelet Volume 6.4 fL (7.4-10.4); Platelet Count 254 thou/uL (130-400); RBC Distribution Width 15.1 % (11.5-14.5); Red Blood Cell (RBC) Count 2.63 mill/uL (4.20-5.40); White Blood Cell (WBC) Count 6.8 thou/uL (4.8-10.8)
[2021-11-02 05:19] LABS: Anion Gap 12 mmol/L (10-20); BUN (Urea Nitrogen) 42 mg/dL (9.8-20.1); Calc. Creatinine Clearance 29 mL/min (70-130); Calcium 7.9 mg/dL (7.8-10.44); Carbon Dioxide 21 mmol/L (23-31); Chloride 111 mmol/L (98-107); Glucose 100 mg/dL (83-110); Potassium 4.6 mmol/L (3.5-5.1); Sodium 139 mmol/L (136-145)
[2021-11-02] MEDS: Levothyroxine Sodium 50 MCG TAB PO SCH (05:55)
[2021-11-02] MEDS: Mometasone 100 MCG/Formoterol 5 MCG 120 PUFF INHALER INH SCH ×2 (06:37→19:30)
[2021-11-02] MEDS: LOKELMA 10 GM PACKET PO SCH (08:39)
[2021-11-02] MEDS: Aspirin 81 mg Enteric Coated Tablet PO SCH (09:35)
[2021-11-02] MEDS: Apixaban 2.5 MG TAB PO SCH ×2 (09:35→20:43)
[2021-11-02] MEDS: predniSONE 20 MG TAB PO SCH (09:35)
[2021-11-02] MEDS: Ferrous Sulfate 325 MG TAB PO SCH ×2 (09:35→17:30)
[2021-11-02] MEDS: Montelukast Sodium 10 mg Tablet PO SCH (09:36)
[2021-11-02] MEDS: Azithromycin 250 MG TAB PO SCH (09:36)
[2021-11-02] MEDS: Sodium Bicarbonate Tab 325 MG TAB PO SCH (20:43)
[2021-11-02] MEDS: cefTRIAXone\\ROCEPHIN 1 GM in Sodium Chloride 0.9% 100 ML IVPB SCH (20:43)
[2021-11-03 04:29] LABS: Anion Gap 13 mmol/L (10-20); BUN (Urea Nitrogen) 41 mg/dL (9.8-20.1); Calc. Creatinine Clearance 35 mL/min (70-130); Calcium 7.9 mg/dL (7.8-10.44); Carbon Dioxide 21 mmol/L (23-31); Chloride 113 mmol/L (98-107); Glucose 97 mg/dL (83-110); Potassium 4.8 mmol/L (3.5-5.1); Sodium 142 mmol/L (136-145)
[2021-11-03 04:32] LABS: Iron 60 ug/dL (50-170); Iron Binding Capacity, Total 193 mcg/dL (265-497)
[2021-11-03] MEDS: Levothyroxine Sodium 50 MCG TAB PO SCH (05:24)
[2021-11-03] MEDS: Mometasone 100 MCG/Formoterol 5 MCG 120 PUFF INHALER INH SCH (06:52)
[2021-11-03] MEDS: Aspirin 81 mg Enteric Coated Tablet PO SCH (09:27)
[2021-11-03] MEDS: Ferrous Sulfate 325 MG TAB PO SCH (09:28)
[2021-11-03] MEDS: Montelukast Sodium 10 mg Tablet PO SCH (09:28)
[2021-11-03] MEDS: predniSONE 20 MG TAB PO SCH (09:28)
[2021-11-03] MEDS: Apixaban 2.5 MG TAB PO SCH (09:28)
[2021-11-03] MEDS: Sodium Bicarbonate Tab 325 MG TAB PO SCH (09:28)
[2021-11-03 12:13] VITALS: BP 149/67; TEMP 98.5
== END 2021-11-03 14:30 | disposition home health service (06) | DRG 682 ==
LOC: ERS 16:32 → 2NO 20:36 → OBSVTOIN 11-01 15:54
PROVIDERS: ADMIT Student in an Organized Health Care Education/Training Program; ATTEND Internal Medicine
DX: N17.9 Acute kidney failure, unspecified (principal); J18.9 Pneumonia, unspecified organism; J44.1 Chronic obstructive pulmonary disease with (acute) exacerbation; I13.0 Hypertensive heart and chronic kidney disease with heart failure and stage 1 through stage 4 chronic kidney disease, or unspecified chronic kidney disease; N39.0 Urinary tract infection, site not specified; E87.2 Acidosis; I50.32 Chronic diastolic (congestive) heart failure; J96.10 Chronic respiratory failure, unspecified whether with hypoxia or hypercapnia; J44.0 Chronic obstructive pulmonary disease with (acute) lower respiratory infection; N18.4 Chronic kidney disease, stage 4 (severe); E78.5 Hyperlipidemia, unspecified; E78.00 Pure hypercholesterolemia, unspecified; M19.90 Unspecified osteoarthritis, unspecified site; E11.21 Type 2 diabetes mellitus with diabetic nephropathy; E89.0 Postprocedural hypothyroidism; D63.1 Anemia in chronic kidney disease; N28.1 Cyst of kidney, acquired; E87.5 Hyperkalemia; I48.0 Paroxysmal atrial fibrillation; F41.9 Anxiety disorder, unspecified; E11.22 Type 2 diabetes mellitus with diabetic chronic kidney disease; Z20.822 Contact with and (suspected) exposure to COVID-19; Z86.711 Personal history of pulmonary embolism; Z87.440 Personal history of urinary (tract) infections; Z88.0 Allergy status to penicillin; Z98.890 Other specified postprocedural states; Z79.01 Long term (current) use of anticoagulants; Z79.02 Long term (current) use of antithrombotics/antiplatelets; Z79.890 Hormone replacement therapy; Z79.899 Other long term (current) drug therapy; Z79.2 Long term (current) use of antibiotics; Z79.82 Long term (current) use of aspirin; Z79.52 Long term (current) use of systemic steroids
CPT/HCPCS: 36415; 71045; 80048; 80053; 82728; 83540; 83550; 83880; 84484; 85025; 93005; 93306; 94640; 96365; 96375; 96376; G0378; J0610; J0696; J1940; J2920; J3475; J3490; J7512; J7620; P9047; U0003; U0005

== ENCOUNTER 2021-11-15 10:54 | Inpatient (IN) | payer MEDICARE, MEDICAID ==
[2021-11-15] MEDS ORDERED: methylPREDNISolone Sod Succ/PF 125 MG/2 ML VIAL ONE (11:15)
[2021-11-15] MEDS ORDERED: Magnesium 2 GM/50 ML BAG (IN WATER) ONE (11:15)
[2021-11-15 11:37] LABS: #Basophils 0.1 thou/uL (0.0-0.2); #Eosinphils 0.3 thou/uL (0.0-0.7); #Lymphocytes 2.4 thou/uL (1.20-3.40); #Monocytes 0.9 thou/uL (0.11-0.59); #Neutrophils 5.9 thou/uL (1.40-6.50); %Basophils 0.8 % (0.0-1.0); %Eosinophils 3.1 % (0.0-10.0); %Lymphocytes 25.1 % (21.0-51.0); %Monocytes 9.1 % (0.0-10.0); %Neutrophils 61.9 % (42.0-75.0); Hemoglobin 10.7 g/dL (12.0-16.0); Mean Corpuscular HGB CONC 32.3 g/dL (32.0-36.0); Mean Corpuscular Hemoglobin 32.5 pg (27.0-31.0); Mean Platelet Volume 6.7 fL (7.4-10.4); Platelet Count 226 thou/uL (130-400); RBC Distribution Width 16.4 % (11.5-14.5); Red Blood Cell (RBC) Count 3.31 mill/uL (4.20-5.40); White Blood Cell (WBC) Count 9.5 thou/uL (4.8-10.8)
[2021-11-15 11:58] LABS: ALT (SGPT) 21 U/L (8-55); AST (SGOT) 11 U/L (5-34); Albumin 3.6 g/dL (3.4-4.8); Alkaline Phosphatase 58 U/L (40-110); Anion Gap 14 mmol/L (10-20); BUN (Urea Nitrogen) 38 mg/dL (9.8-20.1); Calc. Creatinine Clearance 0 mL/min (70-130); Calcium 7.7 mg/dL (7.8-10.44); Carbon Dioxide 20 mmol/L (23-31); Chloride 112 mmol/L (98-107); Globulin 2.6 g/dL (2.4-3.5); Glucose 95 mg/dL (83-110); Potassium 5.1 mmol/L (3.5-5.1); Protein, Total 6.2 g/dL (5.8-8.1); Sodium 141 mmol/L (136-145)
[2021-11-15] MEDS ORDERED: Potassium Bicarbonate/Cit Ac 25 MEQ TAB ONE (14:29)
[2021-11-15] MEDS ORDERED: Potassium Chloride 20 MEQ TAB ONE (14:29)
[2021-11-15] MEDS ORDERED: Ondansetron PF 4 MG/2 ML Vial IVP PRN (15:54)
[2021-11-15] MEDS ORDERED: Dextrose 5% in Water 1,000 ML IV PRN (15:54)
[2021-11-15] MEDS ORDERED: Dextrose 50% Abboject 50 ML SYRINGE SLOW IVP PRN (15:54)
[2021-11-15] MEDS ORDERED: HumaLOG 300 UNITS/3 ML VIAL SC PRN (15:54)
[2021-11-15] MEDS ORDERED: Acetaminophen 325 MG TAB PO PRN (15:54)
[2021-11-15 16:53] VITALS: BMI 44.4
[2021-11-15 17:20] LABS: Troponin I 0.016 ng/mL (< 0.028)
[2021-11-15] MEDS: methylPREDNISolone Sod Succ 40 MG VIAL IVP SCH ×2 (19:14→23:47)
[2021-11-15] MEDS: Mometasone 100 MCG/Formoterol 5 MCG 120 PUFF INHALER INH SCH (19:30)
[2021-11-15 20:08] LABS: Troponin I 0.015 ng/mL (< 0.028)
[2021-11-15] MEDS: Apixaban 2.5 MG TAB PO SCH (21:29)
[2021-11-15] MEDS: Atorvastatin Calcium 10 MG TAB PO SCH (21:29)
[2021-11-16 05:30] LABS: #Lymphocytes 0.5 thou/uL (1.20-3.40); #Monocytes 0.1 thou/uL (0.11-0.59); #Neutrophils 8.5 thou/uL (1.40-6.50); %Basophils 0.1 % (0.0-1.0); %Eosinophils 0.1 % (0.0-10.0); %Monocytes 1.4 % (0.0-10.0); %Neutrophils 93.5 % (42.0-75.0); Hemoglobin 9.5 g/dL (12.0-16.0); Mean Corpuscular HGB CONC 33.7 g/dL (32.0-36.0); Mean Corpuscular Hemoglobin 33.4 pg (27.0-31.0); Mean Corpuscular Volume 99.2 fL (78.0-98.0); Mean Platelet Volume 6.5 fL (7.4-10.4); Platelet Count 203 thou/uL (130-400); RBC Distribution Width 16.5 % (11.5-14.5); Red Blood Cell (RBC) Count 2.84 mill/uL (4.20-5.40); White Blood Cell (WBC) Count 9.1 thou/uL (4.8-10.8)
[2021-11-16 05:52] LABS: Anion Gap 12 mmol/L (10-20); BUN (Urea Nitrogen) 41 mg/dL (9.8-20.1); Calc. Creatinine Clearance 40 mL/min (70-130); Carbon Dioxide 19 mmol/L (23-31); Chloride 113 mmol/L (98-107); Glucose 132 mg/dL (83-110); Potassium 5.9 mmol/L (3.5-5.1); Sodium 138 mmol/L (136-145)
[2021-11-16] MEDS: Levothyroxine Sodium 50 MCG TAB PO SCH (06:15)
[2021-11-16] MEDS: methylPREDNISolone Sod Succ 40 MG VIAL IVP SCH (06:15)
[2021-11-16] MEDS: Mometasone 100 MCG/Formoterol 5 MCG 120 PUFF INHALER INH SCH ×2 (06:37→18:48)
[2021-11-16] MEDS: Aspirin 81 mg Enteric Coated Tablet PO SCH (08:47)
[2021-11-16] MEDS: Montelukast Sodium 10 mg Tablet PO SCH (08:48)
[2021-11-16] MEDS: Calcitriol 0.25 MCG CAP PO SCH (08:48)
[2021-11-16] MEDS: Furosemide 20 MG TAB PO SCH ×2 (08:48→08:51)
[2021-11-16] MEDS: Sodium Bicarbonate Tab 325 MG TAB PO SCH ×3 (08:48→21:44)
[2021-11-16] MEDS: Apixaban 2.5 MG TAB PO SCH ×2 (08:49→21:44)
[2021-11-16] MEDS: Ferrous Sulfate 325 MG TAB PO SCH (08:49)
[2021-11-16] MEDS ORDERED: Non-Formulary Item 1 EACH (Tiotropium Bromide [Spiriva] 18 MCG Cap.W.Dev) IH SCH (09:00)
[2021-11-16 09:16] LABS: Potassium 5.7 mmol/L (3.5-5.1)
[2021-11-16] MEDS ORDERED: LOKELMA 10 GM PACKET PO SCH (09:30)
[2021-11-16] MEDS ORDERED: Furosemide 20 MG/2 ML VIAL SLOW IVP SCH (09:30)
[2021-11-16] MEDS ORDERED: Cefdinir 300 MG CAP PO SCH (09:45)
[2021-11-16 15:05] LABS: Chloride 109 mmol/L (98-107); Potassium 5.7 mmol/L (3.5-5.1)
[2021-11-16 15:06] LABS: Calcium 8.2 mg/dL (7.8-10.44); Glucose 112 mg/dL (83-110); Sodium 136 mmol/L (136-145)
[2021-11-16 15:08] LABS: Anion Gap 13 mmol/L (10-20); Carbon Dioxide 20 mmol/L (23-31)
[2021-11-16 15:10] LABS: Calc. Creatinine Clearance 41 mL/min (70-130)
[2021-11-16 15:11] LABS: BUN (Urea Nitrogen) 43 mg/dL (9.8-20.1)
[2021-11-16] MEDS: predniSONE 20 MG TAB PO SCH (17:35)
[2021-11-16] MEDS ORDERED: Folic Acid/Vit B Comp W-C PO SCH (21:00)
[2021-11-16] MEDS: LOKELMA 10 GM PACKET PO SCH (21:44)
[2021-11-16] MEDS: Atorvastatin Calcium 10 MG TAB PO SCH (21:44)
[2021-11-17] MEDS ORDERED: guaiFENesin ER 600 MG TAB PO SCH ×2 (01:15→09:00)
[2021-11-17] MEDS: Levothyroxine Sodium 50 MCG TAB PO SCH (05:53)
[2021-11-17 06:01] LABS: Anion Gap 12 mmol/L (10-20); BUN (Urea Nitrogen) 46 mg/dL (9.8-20.1); Calc. Creatinine Clearance 40 mL/min (70-130); Carbon Dioxide 21 mmol/L (23-31); Chloride 110 mmol/L (98-107); Glucose 102 mg/dL (83-110); Potassium 5.3 mmol/L (3.5-5.1); Sodium 138 mmol/L (136-145)
[2021-11-17] MEDS: Mometasone 100 MCG/Formoterol 5 MCG 120 PUFF INHALER INH SCH (08:16)
[2021-11-17] MEDS: Sodium Bicarbonate Tab 325 MG TAB PO SCH ×2 (08:19→17:29)
[2021-11-17] MEDS: Calcitriol 0.25 MCG CAP PO SCH (08:19)
[2021-11-17] MEDS: Montelukast Sodium 10 mg Tablet PO SCH (08:20)
[2021-11-17] MEDS: Aspirin 81 mg Enteric Coated Tablet PO SCH (08:20)
[2021-11-17] MEDS: predniSONE 20 MG TAB PO SCH ×2 (08:20→17:29)
[2021-11-17] MEDS: Apixaban 2.5 MG TAB PO SCH (08:20)
[2021-11-17] MEDS: Ferrous Sulfate 325 MG TAB PO SCH (08:21)
[2021-11-17] MEDS ORDERED: Cefdinir 300 MG CAP PO SCH (09:00)
[2021-11-17] MEDS: LOKELMA 10 GM PACKET PO SCH ×2 (09:14→16:21)
[2021-11-17 15:08] LABS: Potassium 4.9 mmol/L (3.5-5.1)
[2021-11-17 15:57] VITALS: BP 146/67; TEMP 97.8
== END 2021-11-17 17:33 | disposition home or self-care (01) | DRG 189 ==
LOC: ERS 10:54 → 2SW 13:38 → OBSVTOIN 11-17 14:12
PROVIDERS: ADMIT Internal Medicine; ATTEND Internal Medicine
PROC: 5A09357 Assistance with Respiratory Ventilation, Less than 24 Consecutive Hours, Continuous Positive Airway Pressure (ICD-10-PCS; principal; 2021-11-17)
DX: J96.21 Acute and chronic respiratory failure with hypoxia (principal); J45.901 Unspecified asthma with (acute) exacerbation; J44.1 Chronic obstructive pulmonary disease with (acute) exacerbation; N17.9 Acute kidney failure, unspecified; N18.4 Chronic kidney disease, stage 4 (severe); E87.2 Acidosis; Z20.822 Contact with and (suspected) exposure to COVID-19; E87.5 Hyperkalemia; I12.9 Hypertensive chronic kidney disease with stage 1 through stage 4 chronic kidney disease, or unspecified chronic kidney disease; E11.22 Type 2 diabetes mellitus with diabetic chronic kidney disease; D63.1 Anemia in chronic kidney disease; E78.5 Hyperlipidemia, unspecified; M19.90 Unspecified osteoarthritis, unspecified site; E89.0 Postprocedural hypothyroidism; Z88.0 Allergy status to penicillin; Z99.89 Dependence on other enabling machines and devices; Z79.899 Other long term (current) drug therapy; Z79.890 Hormone replacement therapy; Z79.01 Long term (current) use of anticoagulants; Z79.82 Long term (current) use of aspirin; Z79.52 Long term (current) use of systemic steroids; Z99.81 Dependence on supplemental oxygen
CPT/HCPCS: 36415; 36416; 71045; 80048; 80053; 83880; 84484; 85025; 94640; 96365; 96375; 96376; G0378; J1815; J1940; J2920; J2930; J3475; J7512; J7620; U0003; U0005

== ENCOUNTER 2021-12-13 10:23 | Emergency (ER) | payer MEDICARE, MEDICAID ==
[2021-12-13 11:09] LABS: #Basophils 0.1 thou/uL (0.0-0.2); #Eosinphils 0.2 thou/uL (0.0-0.7); #Lymphocytes 2.2 thou/uL (1.20-3.40); #Monocytes 0.7 thou/uL (0.11-0.59); %Basophils 0.7 % (0.0-1.0); %Eosinophils 2.1 % (0.0-10.0); %Lymphocytes 26.8 % (21.0-51.0); %Monocytes 8.7 % (0.0-10.0); %Neutrophils 61.7 % (42.0-75.0); Hemoglobin 9.5 g/dL (12.0-16.0); Mean Corpuscular HGB CONC 32.5 g/dL (32.0-36.0); Mean Corpuscular Hemoglobin 31.8 pg (27.0-31.0); Mean Corpuscular Volume 97.7 fL (78.0-98.0); Mean Platelet Volume 6.8 fL (7.4-10.4); Platelet Count 327 thou/uL (130-400); RBC Distribution Width 14.9 % (11.5-14.5); Red Blood Cell (RBC) Count 2.97 mill/uL (4.20-5.40)
[2021-12-13 11:24] LABS: ALT (SGPT) 7 U/L (8-55); AST (SGOT) 14 U/L (5-34); Albumin 3.4 g/dL (3.4-4.8); Alkaline Phosphatase 74 U/L (40-110); Anion Gap 16 mmol/L (10-20); BUN (Urea Nitrogen) 34 mg/dL (9.8-20.1); Bilirubin, Total 0.7 mg/dL (0.2-1.2); Calc. Creatinine Clearance 0 mL/min (70-130); Calcium 8.4 mg/dL (7.8-10.44); Carbon Dioxide 24 mmol/L (23-31); Chloride 108 mmol/L (98-107); Estimated GFR 18; Globulin 2.6 g/dL (2.4-3.5); Glucose 88 mg/dL (83-110); Potassium 4.7 mmol/L (3.5-5.1); Sodium 143 mmol/L (136-145)
[2021-12-13] MEDS ORDERED: Furosemide 40 MG/4 ML VIAL ONE (12:01)
== END 2021-12-13 13:06 | disposition home or self-care (01) ==
LOC: ERS 10:23
DX: I50.9 Heart failure, unspecified (principal); J44.9 Chronic obstructive pulmonary disease, unspecified; E78.5 Hyperlipidemia, unspecified; E78.00 Pure hypercholesterolemia, unspecified; I25.10 Atherosclerotic heart disease of native coronary artery without angina pectoris; E03.9 Hypothyroidism, unspecified; Z79.82 Long term (current) use of aspirin; Z79.899 Other long term (current) drug therapy; Z79.01 Long term (current) use of anticoagulants
CPT/HCPCS: 71045; 80053; 83880; 84484; 85025; 93005; 96374; J1940

== ENCOUNTER 2022-02-16 15:40 | Inpatient (IN) | payer OTHER ==
[2022-02-16 16:37] LABS: Hemoglobin 9.8 g/dL (12.0-16.0); Mean Corpuscular HGB CONC 33.1 g/dL (32.0-36.0); Mean Corpuscular Hemoglobin 31.1 pg (27.0-31.0); Mean Platelet Volume 7.1 fL (7.4-10.4); Platelet Count 223 thou/uL (130-400); RBC Distribution Width 13.2 % (11.5-14.5); Red Blood Cell (RBC) Count 3.15 mill/uL (4.20-5.40); White Blood Cell (WBC) Count 9.2 thou/uL (4.8-10.8)
[2022-02-16 16:50] LABS: INR-International Normal Ratio 1.2; PTT 28.2 sec (22.9-36.1); Prothrombin Time 14.8 sec (12.0-14.7)
[2022-02-16 17:00] LABS: Eosinophils 1 % (0-10); Lymphocytes 14 % (21-51); MDiff Complete? YES; Monocytes 14 % (0-10); Neutrophil 70 % (42-75); Ovalocytes SLIGHT = 2-5 cells (100X) (0-1/hpf); Platelet Morphology Comment Appears Adequate; Polychromasia SLIGHT = 2-3 cells (100X) (0-2/hpf); Reactive Lymphocytes 1 % (0-10)
[2022-02-16 17:04] LABS: ALT (SGPT) 12 U/L (8-55); AST (SGOT) 13 U/L (5-34); Albumin 3.3 g/dL (3.4-4.8); Alkaline Phosphatase 55 U/L (40-110); Anion Gap 15 mmol/L (10-20); BUN (Urea Nitrogen) 50 mg/dL (9.8-20.1); Bilirubin, Total 0.4 mg/dL (0.2-1.2); Calc. Creatinine Clearance 0 mL/min (70-130); Calcium 7.9 mg/dL (7.8-10.44); Carbon Dioxide 23 mmol/L (23-31); Chloride 105 mmol/L (98-107); Estimated GFR 15; Globulin 2.6 g/dL (2.4-3.5); Glucose 95 mg/dL (83-110); Lipase 52 U/L (8-78); Protein, Total 5.9 g/dL (5.8-8.1); Sodium 138 mmol/L (136-145)
[2022-02-16] MEDS ORDERED: Acetaminophen 650 MG Suppository PR PRN ×2 (18:40→19:28)
[2022-02-16] MEDS ORDERED: Ondansetron PF 4 MG/2 ML Vial IVP PRN (18:40)
[2022-02-16 20:01] LABS: Troponin I 0.029 ng/mL (< 0.028)
[2022-02-16 23:27] LABS: Troponin I 0.026 ng/mL (< 0.028)
[2022-02-17] MEDS ORDERED: Ipratropium Bromide 2.5 ml Neb ONE (00:33)
[2022-02-17] MEDS ORDERED: Albuterol 200 PUFF (6.7GM INHALER) ONE (00:33)
[2022-02-17] MEDS: Albuterol 200 PUFF (6.7GM INHALER) INH SCH ×4 (00:36→18:10)
[2022-02-17] MEDS: Ipratropium Bromide 2.5 ml Neb NEB SCH ×2 (00:41→07:40)
[2022-02-17 02:46] VITALS: BMI 39.6
[2022-02-17 04:22] LABS: Mean Corpuscular HGB CONC 33.9 g/dL (32.0-36.0); Mean Corpuscular Volume 94.4 fL (78.0-98.0); Mean Platelet Volume 7.4 fL (7.4-10.4); Platelet Count 221 thou/uL (130-400); RBC Distribution Width 13.2 % (11.5-14.5); Red Blood Cell (RBC) Count 3.12 mill/uL (4.20-5.40)
[2022-02-17 04:25] LABS: Anion Gap 13 mmol/L (10-20); BUN (Urea Nitrogen) 51 mg/dL (9.8-20.1); Calc. Creatinine Clearance 31 mL/min (70-130); Calcium 7.9 mg/dL (7.8-10.44); Carbon Dioxide 25 mmol/L (23-31); Chloride 106 mmol/L (98-107); Estimated GFR 16; Glucose 82 mg/dL (83-110); Sodium 139 mmol/L (136-145)
[2022-02-17 04:46] LABS: Band 3 % (5-11); Eosinophils 7 % (0-10); Lymphocytes 17 % (21-51); MDiff Complete? YES; Monocytes 18 % (0-10); Neutrophil 55 % (42-75)
[2022-02-17] MEDS: Benzonatate 100 MG CAP PO PRN (05:02)
[2022-02-17] MEDS: Lorazepam 1 MG TAB PO PRN (05:02)
[2022-02-17] MEDS: cefTRIAXone\\ROCEPHIN 1 GM in Sodium Chloride 0.9% 100 ML IVPB SCH (05:09)
[2022-02-17 06:17] LABS: Magnesium 2.4 mg/dL (1.6-2.6)
[2022-02-17] MEDS ORDERED: Azithromycin 500 MG in Syringe 0 ML IVPB SCH (07:00)
[2022-02-17] MEDS: Apixaban 2.5 MG TAB PO SCH ×2 (08:56→20:56)
[2022-02-17] MEDS: Mometasone 100 MCG/Formoterol 5 MCG 120 PUFF INHALER INH SCH ×2 (08:57→18:10)
[2022-02-17] MEDS: Aspirin 81 mg Enteric Coated Tablet PO SCH (08:57)
[2022-02-17] MEDS: Calcitriol 0.25 MCG CAP PO SCH (08:57)
[2022-02-17] MEDS: Montelukast Sodium 10 mg Tablet PO SCH (08:57)
[2022-02-17] MEDS ORDERED: Levothyroxine Sodium 50 MCG TAB PO SCH (09:00)
[2022-02-17] MEDS: Azithromycin 500 MG in Sodium Chloride 0.9% 250 ML 250 ML IVPB SCH (10:12)
[2022-02-17] MEDS: Atorvastatin Calcium 10 MG TAB PO SCH (20:56)
[2022-02-17] MEDS ORDERED: Pravastatin Sodium 40 MG TAB PO SCH (21:00)
[2022-02-17 23:10] LABS: SARS-CoV-2 NAA Rapid Test DETECTED (NotDetected)
[2022-02-18] MEDS: Albuterol 200 PUFF (6.7GM INHALER) INH SCH ×4 (00:07→17:33)
[2022-02-18 04:34] LABS: Anion Gap 13 mmol/L (10-20); BUN (Urea Nitrogen) 50 mg/dL (9.8-20.1); Calc. Creatinine Clearance 33 mL/min (70-130); Calcium 7.9 mg/dL (7.8-10.44); Carbon Dioxide 23 mmol/L (23-31); Chloride 108 mmol/L (98-107); Estimated GFR 17; Glucose 94 mg/dL (83-110); Potassium 4.9 mmol/L (3.5-5.1); Sodium 139 mmol/L (136-145)
[2022-02-18 05:11] LABS: Band 10 % (5-11); Eosinophils 9 % (0-10); Hemoglobin 10.1 g/dL (12.0-16.0); Lymphocytes 25 % (21-51); MDiff Complete? YES; Mean Corpuscular HGB CONC 32.5 g/dL (32.0-36.0); Mean Corpuscular Hemoglobin 30.6 pg (27.0-31.0); Mean Corpuscular Volume 94.2 fL (78.0-98.0); Mean Platelet Volume 7.4 fL (7.4-10.4); Monocytes 11 % (0-10); Neutrophil 45 % (42-75); Platelet Count 217 thou/uL (130-400); RBC Distribution Width 13.2 % (11.5-14.5); Red Blood Cell (RBC) Count 3.29 mill/uL (4.20-5.40); White Blood Cell (WBC) Count 6.6 thou/uL (4.8-10.8)
[2022-02-18] MEDS: cefTRIAXone\\ROCEPHIN 1 GM in Sodium Chloride 0.9% 100 ML IVPB SCH (05:34)
[2022-02-18] MEDS: Levothyroxine Sodium 50 MCG TAB PO SCH (05:35)
[2022-02-18] MEDS: Mometasone 100 MCG/Formoterol 5 MCG 120 PUFF INHALER INH SCH ×2 (08:48→17:33)
[2022-02-18] MEDS: Calcitriol 0.25 MCG CAP PO SCH (08:48)
[2022-02-18] MEDS: Azithromycin 500 MG in Sodium Chloride 0.9% 250 ML 250 ML IVPB SCH (08:48)
[2022-02-18] MEDS: Aspirin 81 mg Enteric Coated Tablet PO SCH (08:49)
[2022-02-18] MEDS: Montelukast Sodium 10 mg Tablet PO SCH (08:49)
[2022-02-18] MEDS: Apixaban 2.5 MG TAB PO SCH ×2 (08:49→20:20)
[2022-02-18] MEDS: Acetaminophen 325 MG TAB PO PRN (11:50)
[2022-02-18] MEDS: Lorazepam 1 MG TAB PO PRN (11:50)
[2022-02-18] MEDS: Atorvastatin Calcium 10 MG TAB PO SCH (20:20)
[2022-02-19] MEDS: Acetaminophen 325 MG TAB PO PRN ×3 (03:11→21:07)
[2022-02-19] MEDS: Ondansetron PF 4 MG/2 ML Vial IVP PRN ×2 (03:11→21:08)
[2022-02-19 04:36] LABS: Anion Gap 14 mmol/L (10-20); BUN (Urea Nitrogen) 49 mg/dL (9.8-20.1); Calc. Creatinine Clearance 32 mL/min (70-130); Calcium 8.2 mg/dL (7.8-10.44); Carbon Dioxide 22 mmol/L (23-31); Chloride 109 mmol/L (98-107); Estimated GFR 17; Glucose 98 mg/dL (83-110); Potassium 5.3 mmol/L (3.5-5.1); Sodium 140 mmol/L (136-145)
[2022-02-19] MEDS: cefTRIAXone\\ROCEPHIN 1 GM in Sodium Chloride 0.9% 100 ML IVPB SCH (05:09)
[2022-02-19] MEDS: Levothyroxine Sodium 50 MCG TAB PO SCH (05:09)
[2022-02-19] MEDS: Albuterol 200 PUFF (6.7GM INHALER) INH SCH ×4 (07:59→23:55)
[2022-02-19] MEDS: Mometasone 100 MCG/Formoterol 5 MCG 120 PUFF INHALER INH SCH ×2 (07:59→17:50)
[2022-02-19] MEDS: Azithromycin 500 MG in Sodium Chloride 0.9% 250 ML 250 ML IVPB SCH (09:53)
[2022-02-19] MEDS: Calcitriol 0.25 MCG CAP PO SCH (09:54)
[2022-02-19] MEDS: Montelukast Sodium 10 mg Tablet PO SCH (09:54)
[2022-02-19] MEDS: Aspirin 81 mg Enteric Coated Tablet PO SCH (09:54)
[2022-02-19] MEDS: Apixaban 2.5 MG TAB PO SCH ×2 (09:55→21:03)
[2022-02-19] MEDS: Atorvastatin Calcium 10 MG TAB PO SCH (21:04)
[2022-02-20] MEDS: Albuterol 200 PUFF (6.7GM INHALER) INH SCH ×5 (00:13→20:06)
[2022-02-20] MEDS: Lorazepam 1 MG TAB PO PRN ×3 (02:19→15:26)
[2022-02-20] MEDS: Ondansetron PF 4 MG/2 ML Vial IVP PRN (02:19)
[2022-02-20] MEDS: Acetaminophen 325 MG TAB PO PRN ×2 (02:19→13:45)
[2022-02-20] MEDS: Levothyroxine Sodium 50 MCG TAB PO SCH (05:40)
[2022-02-20] MEDS: cefTRIAXone\\ROCEPHIN 1 GM in Sodium Chloride 0.9% 100 ML IVPB SCH (05:40)
[2022-02-20] MEDS: Mometasone 100 MCG/Formoterol 5 MCG 120 PUFF INHALER INH SCH ×2 (05:41→18:27)
[2022-02-20 07:55] LABS: #Eosinphils 0.4 thou/uL (0.0-0.7); #Lymphocytes 1.5 thou/uL (1.20-3.40); #Monocytes 0.8 thou/uL (0.11-0.59); #Neutrophils 3.4 thou/uL (1.40-6.50); %Basophils 0.1 % (0.0-1.0); %Eosinophils 7.1 % (0.0-10.0); %Lymphocytes 23.8 % (21.0-51.0); %Monocytes 13.7 % (0.0-10.0); %Neutrophils 55.4 % (42.0-75.0); Hemoglobin 9.9 g/dL (12.0-16.0); Mean Corpuscular HGB CONC 33.4 g/dL (32.0-36.0); Mean Corpuscular Hemoglobin 31.3 pg (27.0-31.0); Mean Corpuscular Volume 93.9 fL (78.0-98.0); Mean Platelet Volume 6.9 fL (7.4-10.4); Platelet Count 187 thou/uL (130-400); RBC Distribution Width 13.1 % (11.5-14.5); Red Blood Cell (RBC) Count 3.15 mill/uL (4.20-5.40); White Blood Cell (WBC) Count 6.1 thou/uL (4.8-10.8)
[2022-02-20 08:16] LABS: Anion Gap 14 mmol/L (10-20); BUN (Urea Nitrogen) 47 mg/dL (9.8-20.1); Calc. Creatinine Clearance 33 mL/min (70-130); Calcium 8.1 mg/dL (7.8-10.44); Carbon Dioxide 21 mmol/L (23-31); Chloride 110 mmol/L (98-107); Estimated GFR 17; Glucose 93 mg/dL (83-110); Potassium 4.9 mmol/L (3.5-5.1); Sodium 140 mmol/L (136-145)
[2022-02-20] MEDS: Azithromycin 500 MG in Sodium Chloride 0.9% 250 ML 250 ML IVPB SCH (09:06)
[2022-02-20] MEDS: Apixaban 2.5 MG TAB PO SCH ×2 (09:07→21:14)
[2022-02-20] MEDS: Calcitriol 0.25 MCG CAP PO SCH (09:07)
[2022-02-20] MEDS: Diclofenac 1% 100 GM GEL TP SCH ×4 (09:07→21:19)
[2022-02-20] MEDS: Aspirin 81 mg Enteric Coated Tablet PO SCH (09:07)
[2022-02-20] MEDS: Montelukast Sodium 10 mg Tablet PO SCH (09:08)
[2022-02-20] MEDS ORDERED: Lorazepam 0.5 MG TAB PO SCH (15:15)
[2022-02-20] MEDS ORDERED: Lorazepam 1 MG TAB PO SCH (15:45)
[2022-02-20] MEDS: Atorvastatin Calcium 10 MG TAB PO SCH (21:14)
[2022-02-21] MEDS: cefTRIAXone\\ROCEPHIN 1 GM in Sodium Chloride 0.9% 100 ML IVPB SCH (05:24)
[2022-02-21] MEDS: Albuterol 200 PUFF (6.7GM INHALER) INH SCH ×3 (05:27→17:13)
[2022-02-21] MEDS: Levothyroxine Sodium 50 MCG TAB PO SCH (05:34)
[2022-02-21] MEDS: Mometasone 100 MCG/Formoterol 5 MCG 120 PUFF INHALER INH SCH ×2 (05:45→18:17)
[2022-02-21] MEDS: Calcitriol 0.25 MCG CAP PO SCH (08:40)
[2022-02-21] MEDS: Aspirin 81 mg Enteric Coated Tablet PO SCH (08:40)
[2022-02-21] MEDS: Apixaban 2.5 MG TAB PO SCH ×2 (08:41→20:24)
[2022-02-21] MEDS: Montelukast Sodium 10 mg Tablet PO SCH (08:41)
[2022-02-21] MEDS: Diclofenac 1% 100 GM GEL TP SCH ×4 (08:41→20:26)
[2022-02-21] MEDS: Azithromycin 500 MG in Sodium Chloride 0.9% 250 ML 250 ML IVPB SCH (10:55)
[2022-02-21] MEDS: Atorvastatin Calcium 10 MG TAB PO SCH (20:23)
[2022-02-21] MEDS: Benzonatate 100 MG CAP PO PRN (20:23)
[2022-02-22] MEDS: Albuterol 200 PUFF (6.7GM INHALER) INH SCH ×4 (01:03→17:55)
[2022-02-22] MEDS: Levothyroxine Sodium 50 MCG TAB PO SCH (06:03)
[2022-02-22] MEDS: Mometasone 100 MCG/Formoterol 5 MCG 120 PUFF INHALER INH SCH ×2 (06:04→17:56)
[2022-02-22] MEDS: cefTRIAXone\\ROCEPHIN 1 GM in Sodium Chloride 0.9% 100 ML IVPB SCH (06:14)
[2022-02-22] MEDS: Azithromycin 500 MG in Sodium Chloride 0.9% 250 ML 250 ML IVPB SCH (08:23)
[2022-02-22] MEDS: Apixaban 2.5 MG TAB PO SCH ×2 (08:24→20:11)
[2022-02-22] MEDS: Calcitriol 0.25 MCG CAP PO SCH (08:25)
[2022-02-22] MEDS: Aspirin 81 mg Enteric Coated Tablet PO SCH (08:25)
[2022-02-22] MEDS: Montelukast Sodium 10 mg Tablet PO SCH (08:25)
[2022-02-22] MEDS: Diclofenac 1% 100 GM GEL TP SCH ×4 (08:38→20:11)
[2022-02-22] MEDS: Atorvastatin Calcium 10 MG TAB PO SCH (20:11)
[2022-02-22] MEDS: Acetaminophen 325 MG TAB PO PRN (20:16)
[2022-02-23] MEDS: Albuterol 200 PUFF (6.7GM INHALER) INH SCH ×4 (00:35→17:13)
[2022-02-23] MEDS: Levothyroxine Sodium 50 MCG TAB PO SCH (06:05)
[2022-02-23] MEDS: cefTRIAXone\\ROCEPHIN 1 GM in Sodium Chloride 0.9% 100 ML IVPB SCH (06:05)
[2022-02-23] MEDS: Mometasone 100 MCG/Formoterol 5 MCG 120 PUFF INHALER INH SCH ×2 (06:06→18:02)
[2022-02-23 07:36] LABS: #Eosinphils 0.5 thou/uL (0.0-0.7); #Lymphocytes 1.4 thou/uL (1.20-3.40); #Monocytes 0.6 thou/uL (0.11-0.59); #Neutrophils 3.1 thou/uL (1.40-6.50); %Basophils 0.1 % (0.0-1.0); %Eosinophils 8.6 % (0.0-10.0); %Monocytes 11.3 % (0.0-10.0); Hemoglobin 9.3 g/dL (12.0-16.0); Mean Corpuscular Hemoglobin 30.5 pg (27.0-31.0); Mean Corpuscular Volume 92.3 fL (78.0-98.0); Mean Platelet Volume 7.5 fL (7.4-10.4); Platelet Count 163 thou/uL (130-400); RBC Distribution Width 13.1 % (11.5-14.5); Red Blood Cell (RBC) Count 3.04 mill/uL (4.20-5.40); White Blood Cell (WBC) Count 5.6 thou/uL (4.8-10.8)
[2022-02-23 07:55] LABS: Anion Gap 14 mmol/L (10-20); BUN (Urea Nitrogen) 42 mg/dL (9.8-20.1); CRP (Inflammatory) 9.14 mg/dL (= or < 0.5); Calc. Creatinine Clearance 36 mL/min (70-130); Calcium 8.1 mg/dL (7.8-10.44); Carbon Dioxide 19 mmol/L (23-31); Chloride 109 mmol/L (98-107); Estimated GFR 19; Glucose 93 mg/dL (83-110); Potassium 5.2 mmol/L (3.5-5.1); Sodium 137 mmol/L (136-145)
[2022-02-23] MEDS: Apixaban 2.5 MG TAB PO SCH ×2 (07:59→20:35)
[2022-02-23] MEDS: Calcitriol 0.25 MCG CAP PO SCH (07:59)
[2022-02-23] MEDS: Aspirin 81 mg Enteric Coated Tablet PO SCH (07:59)
[2022-02-23] MEDS: Diclofenac 1% 100 GM GEL TP SCH ×4 (08:00→20:35)
[2022-02-23] MEDS: Montelukast Sodium 10 mg Tablet PO SCH (08:00)
[2022-02-23] MEDS: Azithromycin 500 MG in Sodium Chloride 0.9% 250 ML 250 ML IVPB SCH (09:20)
[2022-02-23] MEDS: Atorvastatin Calcium 10 MG TAB PO SCH (20:34)
[2022-02-23] MEDS: Acetaminophen 325 MG TAB PO PRN (20:35)
[2022-02-23] MEDS: Benzonatate 100 MG CAP PO PRN (20:42)
[2022-02-24] MEDS: Albuterol 200 PUFF (6.7GM INHALER) INH SCH ×4 (01:09→17:30)
[2022-02-24] MEDS: Benzonatate 100 MG CAP PO PRN ×2 (01:13→12:55)
[2022-02-24] MEDS: Levothyroxine Sodium 50 MCG TAB PO SCH (05:55)
[2022-02-24] MEDS: cefTRIAXone\\ROCEPHIN 1 GM in Sodium Chloride 0.9% 100 ML IVPB SCH (05:55)
[2022-02-24] MEDS: Mometasone 100 MCG/Formoterol 5 MCG 120 PUFF INHALER INH SCH ×2 (05:56→18:06)
[2022-02-24] MEDS: Azithromycin 500 MG in Sodium Chloride 0.9% 250 ML 250 ML IVPB SCH (08:44)
[2022-02-24] MEDS: Montelukast Sodium 10 mg Tablet PO SCH (08:45)
[2022-02-24] MEDS: Apixaban 2.5 MG TAB PO SCH ×2 (08:45→21:11)
[2022-02-24] MEDS: Aspirin 81 mg Enteric Coated Tablet PO SCH (08:46)
[2022-02-24] MEDS: Calcitriol 0.25 MCG CAP PO SCH (08:46)
[2022-02-24] MEDS: Diclofenac 1% 100 GM GEL TP SCH ×4 (08:48→21:11)
[2022-02-24 09:26] LABS: Anion Gap 15 mmol/L (10-20); BUN (Urea Nitrogen) 48 mg/dL (9.8-20.1); Calc. Creatinine Clearance 33 mL/min (70-130); Calcium 8.3 mg/dL (7.8-10.44); Carbon Dioxide 19 mmol/L (23-31); Chloride 110 mmol/L (98-107); Estimated GFR 17; Glucose 79 mg/dL (83-110); Potassium 5.4 mmol/L (3.5-5.1); Sodium 139 mmol/L (136-145)
[2022-02-24] MEDS: Atorvastatin Calcium 10 MG TAB PO SCH (21:09)
[2022-02-24] MEDS: Sodium Bicarbonate Tab 325 MG TAB PO SCH (21:10)
[2022-02-24] MEDS: Acetaminophen 325 MG TAB PO PRN (21:10)
[2022-02-24] MEDS: guaiFENesin ER 600 MG TAB PO SCH (21:11)
[2022-02-25] MEDS: Albuterol 200 PUFF (6.7GM INHALER) INH SCH ×4 (00:44→17:49)
[2022-02-25] MEDS: Levothyroxine Sodium 50 MCG TAB PO SCH (06:22)
[2022-02-25] MEDS: cefTRIAXone\\ROCEPHIN 1 GM in Sodium Chloride 0.9% 100 ML IVPB SCH (06:22)
[2022-02-25] MEDS: Mometasone 100 MCG/Formoterol 5 MCG 120 PUFF INHALER INH SCH ×2 (06:23→17:53)
[2022-02-25 07:27] LABS: #Eosinphils 0.5 thou/uL (0.0-0.7); #Lymphocytes 1.1 thou/uL (1.20-3.40); #Monocytes 0.6 thou/uL (0.11-0.59); #Neutrophils 1.7 thou/uL (1.40-6.50); %Basophils 0.6 % (0.0-1.0); %Lymphocytes 28.5 % (21.0-51.0); %Monocytes 14.6 % (0.0-10.0); %Neutrophils 43.3 % (42.0-75.0); Hemoglobin 8.9 g/dL (12.0-16.0); Mean Corpuscular HGB CONC 32.4 g/dL (32.0-36.0); Mean Corpuscular Hemoglobin 29.9 pg (27.0-31.0); Mean Corpuscular Volume 92.2 fL (78.0-98.0); Mean Platelet Volume 7.3 fL (7.4-10.4); Platelet Count 164 thou/uL (130-400); RBC Distribution Width 13.1 % (11.5-14.5); Red Blood Cell (RBC) Count 2.96 mill/uL (4.20-5.40)
[2022-02-25 07:55] LABS: ALT (SGPT) 50 U/L (8-55); AST (SGOT) 55 U/L (5-34); Albumin 2.7 g/dL (3.4-4.8); Alkaline Phosphatase 45 U/L (40-110); Anion Gap 12 mmol/L (10-20); BUN (Urea Nitrogen) 51 mg/dL (9.8-20.1); Bilirubin, Total 0.3 mg/dL (0.2-1.2); CRP (Inflammatory) 10.39 mg/dL (= or < 0.5); Calc. Creatinine Clearance 32 mL/min (70-130); Calcium 7.9 mg/dL (7.8-10.44); Carbon Dioxide 20 mmol/L (23-31); Chloride 111 mmol/L (98-107); Estimated GFR 17; Globulin 2.9 g/dL (2.4-3.5); Glucose 87 mg/dL (83-110); Potassium 5.3 mmol/L (3.5-5.1); Protein, Total 5.6 g/dL (5.8-8.1); Sodium 138 mmol/L (136-145)
[2022-02-25] MEDS: Aspirin 81 mg Enteric Coated Tablet PO SCH (08:01)
[2022-02-25] MEDS: guaiFENesin ER 600 MG TAB PO SCH ×2 (08:02→21:29)
[2022-02-25] MEDS: Montelukast Sodium 10 mg Tablet PO SCH (08:02)
[2022-02-25] MEDS: Azithromycin 500 MG in Sodium Chloride 0.9% 250 ML 250 ML IVPB SCH (08:02)
[2022-02-25] MEDS: Calcitriol 0.25 MCG CAP PO SCH (08:02)
[2022-02-25] MEDS: Apixaban 2.5 MG TAB PO SCH ×2 (08:02→21:28)
[2022-02-25] MEDS: Sodium Bicarbonate Tab 325 MG TAB PO SCH (08:02)
[2022-02-25] MEDS: Diclofenac 1% 100 GM GEL TP SCH ×4 (08:05→21:29)
[2022-02-25] MEDS: Benzonatate 100 MG CAP PO PRN (21:28)
[2022-02-25] MEDS: Atorvastatin Calcium 10 MG TAB PO SCH (21:29)
[2022-02-25] MEDS: Acetaminophen 325 MG TAB PO PRN (21:31)
[2022-02-26] MEDS: Albuterol 200 PUFF (6.7GM INHALER) INH SCH ×3 (00:22→11:46)
[2022-02-26] MEDS: cefTRIAXone\\ROCEPHIN 1 GM in Sodium Chloride 0.9% 100 ML IVPB SCH (06:18)
[2022-02-26] MEDS: Levothyroxine Sodium 50 MCG TAB PO SCH (06:18)
[2022-02-26] MEDS: Mometasone 100 MCG/Formoterol 5 MCG 120 PUFF INHALER INH SCH (06:19)
[2022-02-26 06:33] LABS: #Eosinphils 0.6 thou/uL (0.0-0.7); #Lymphocytes 1.4 thou/uL (1.20-3.40); #Monocytes 0.5 thou/uL (0.11-0.59); #Neutrophils 1.4 thou/uL (1.40-6.50); %Basophils 0.5 % (0.0-1.0); %Eosinophils 15.7 % (0.0-10.0); %Lymphocytes 35.2 % (21.0-51.0); %Monocytes 13.3 % (0.0-10.0); %Neutrophils 35.4 % (42.0-75.0); Hemoglobin 8.8 g/dL (12.0-16.0); Mean Corpuscular HGB CONC 32.8 g/dL (32.0-36.0); Mean Corpuscular Hemoglobin 30.2 pg (27.0-31.0); Mean Corpuscular Volume 91.8 fL (78.0-98.0); Mean Platelet Volume 7.5 fL (7.4-10.4); Platelet Count 192 thou/uL (130-400); White Blood Cell (WBC) Count 3.9 thou/uL (4.8-10.8)
[2022-02-26 06:40] LABS: ALT (SGPT) 52 U/L (8-55); AST (SGOT) 55 U/L (5-34); Albumin 2.7 g/dL (3.4-4.8); Alkaline Phosphatase 48 U/L (40-110); Anion Gap 14 mmol/L (10-20); BUN (Urea Nitrogen) 51 mg/dL (9.8-20.1); Bilirubin, Total 0.3 mg/dL (0.2-1.2); Calc. Creatinine Clearance 34 mL/min (70-130); Calcium 8.1 mg/dL (7.8-10.44); Carbon Dioxide 21 mmol/L (23-31); Chloride 111 mmol/L (98-107); Estimated GFR 18; Globulin 2.9 g/dL (2.4-3.5); Glucose 78 mg/dL (83-110); Magnesium 2.7 mg/dL (1.6-2.6); Phosphorus 4.2 mg/dL (2.3-4.7); Potassium 5.5 mmol/L (3.5-5.1); Protein, Total 5.6 g/dL (5.8-8.1); Sodium 140 mmol/L (136-145)
[2022-02-26] MEDS: Azithromycin 500 MG in Sodium Chloride 0.9% 250 ML 250 ML IVPB SCH (08:04)
[2022-02-26] MEDS: Montelukast Sodium 10 mg Tablet PO SCH (08:08)
[2022-02-26] MEDS: Calcitriol 0.25 MCG CAP PO SCH (08:08)
[2022-02-26] MEDS: Aspirin 81 mg Enteric Coated Tablet PO SCH (08:08)
[2022-02-26] MEDS: guaiFENesin ER 600 MG TAB PO SCH (08:08)
[2022-02-26] MEDS: Apixaban 2.5 MG TAB PO SCH (08:08)
[2022-02-26 08:24] VITALS: BP 133/71; TEMP 97.6
[2022-02-26] MEDS: Diclofenac 1% 100 GM GEL TP SCH ×3 (09:16→17:11)
== END 2022-02-26 18:05 | DRG 177 ==
LOC: ERS 15:40 → ERHOLD 18:30 → IMCU/EMU 02-17 01:21 → T4-A 02-20 20:44
PROVIDERS: ADMIT Family Medicine; ATTEND Internal Medicine
PROC: 8E0ZXY6 Isolation (ICD-10-PCS; 2022-02-16)
PROC: 5A09357 Assistance with Respiratory Ventilation, Less than 24 Consecutive Hours, Continuous Positive Airway Pressure (ICD-10-PCS; principal; 2022-02-18)
DX: U07.1 COVID-19 (principal); J12.82 Pneumonia due to coronavirus disease 2019; J96.21 Acute and chronic respiratory failure with hypoxia; N18.4 Chronic kidney disease, stage 4 (severe); J44.0 Chronic obstructive pulmonary disease with (acute) lower respiratory infection; N17.9 Acute kidney failure, unspecified; I48.20 Chronic atrial fibrillation, unspecified; I50.32 Chronic diastolic (congestive) heart failure; J44.1 Chronic obstructive pulmonary disease with (acute) exacerbation; I13.0 Hypertensive heart and chronic kidney disease with heart failure and stage 1 through stage 4 chronic kidney disease, or unspecified chronic kidney disease; E78.5 Hyperlipidemia, unspecified; E78.00 Pure hypercholesterolemia, unspecified; I25.10 Atherosclerotic heart disease of native coronary artery without angina pectoris; E03.9 Hypothyroidism, unspecified; M19.90 Unspecified osteoarthritis, unspecified site; F41.9 Anxiety disorder, unspecified; D63.1 Anemia in chronic kidney disease; F32.A Depression, unspecified; E11.22 Type 2 diabetes mellitus with diabetic chronic kidney disease; E66.01 Morbid (severe) obesity due to excess calories; M17.0 Bilateral primary osteoarthritis of knee; E87.5 Hyperkalemia; Z86.711 Personal history of pulmonary embolism; Z88.0 Allergy status to penicillin; Z99.81 Dependence on supplemental oxygen; Z79.01 Long term (current) use of anticoagulants; Z79.899 Other long term (current) drug therapy; Z79.51 Long term (current) use of inhaled steroids; Z79.82 Long term (current) use of aspirin; Z68.38 Body mass index [BMI] 38.0-38.9, adult
CPT/HCPCS: 36415; 36416; 71045; 71250; 80048; 80053; 83605; 83690; 83735; 83880; 84100; 84145; 84443; 84484; 85025; 85379; 85610; 85730; 86140; 86850; 86900; 86901; 87040; 93005; 93010; 93970; 94640; 94664; 94760; 96365; 96366; J0456; J0696; J1956; J2405; J3490; J7050

== ENCOUNTER 2022-03-17 11:14 | Emergency (ER) | payer OTHER ==
[2022-03-17 12:08] LABS: #Basophils 0.1 thou/uL (0.0-0.2); #Eosinphils 0.4 thou/uL (0.0-0.7); #Lymphocytes 1.6 thou/uL (1.20-3.40); #Monocytes 0.8 thou/uL (0.11-0.59); %Basophils 0.8 % (0.0-1.0); %Eosinophils 5.9 % (0.0-10.0); %Lymphocytes 23.3 % (21.0-51.0); %Monocytes 11.5 % (0.0-10.0); %Neutrophils 58.6 % (42.0-75.0); Hemoglobin 8.8 g/dL (12.0-16.0); Mean Corpuscular Hemoglobin 29.3 pg (27.0-31.0); Mean Corpuscular Volume 91.8 fL (78.0-98.0); Mean Platelet Volume 7.1 fL (7.4-10.4); Platelet Count 231 thou/uL (130-400); RBC Distribution Width 14.1 % (11.5-14.5); Red Blood Cell (RBC) Count 2.98 mill/uL (4.20-5.40); White Blood Cell (WBC) Count 6.7 thou/uL (4.8-10.8)
[2022-03-17 12:31] LABS: Albumin 3.4 g/dL (3.4-4.8)
[2022-03-17 12:32] LABS: Calcium 8.2 mg/dL (7.8-10.44); Chloride 112 mmol/L (98-107); Potassium 5.3 mmol/L (3.5-5.1); Sodium 140 mmol/L (136-145)
[2022-03-17 12:33] LABS: Glucose 84 mg/dL (83-110)
[2022-03-17 12:34] LABS: Carbon Dioxide 20 mmol/L (23-31); Globulin 2.6 g/dL (2.4-3.5)
[2022-03-17 12:35] LABS: Anion Gap 13 mmol/L (10-20); Bilirubin, Total 0.6 mg/dL (0.2-1.2)
[2022-03-17 12:36] LABS: Alkaline Phosphatase 67 U/L (40-110)
[2022-03-17 12:37] LABS: BUN (Urea Nitrogen) 28 mg/dL (9.8-20.1); Calc. Creatinine Clearance 0 mL/min (70-130); Estimated GFR 20
[2022-03-17 12:38] LABS: AST (SGOT) 15 U/L (5-34)
[2022-03-17 12:39] LABS: ALT (SGPT) 10 U/L (8-55); CK (CPK) 51 U/L (29-168); Lipase 54 U/L (8-78); Magnesium 2.5 mg/dL (1.6-2.6)
== END 2022-03-17 15:26 | disposition home or self-care (01) ==
LOC: ERS 11:14
DX: R04.0 Epistaxis (principal); E78.5 Hyperlipidemia, unspecified; E78.00 Pure hypercholesterolemia, unspecified; E03.9 Hypothyroidism, unspecified; E11.9 Type 2 diabetes mellitus without complications; J44.9 Chronic obstructive pulmonary disease, unspecified; I25.10 Atherosclerotic heart disease of native coronary artery without angina pectoris; Z79.899 Other long term (current) drug therapy
CPT/HCPCS: 36415; 71045; 80053; 82550; 83690; 83735; 83880; 84484; 85025; 93005

== ENCOUNTER 2022-04-05 00:12 | Emergency (ER) | payer OTHER ==
[2022-04-05 02:01] LABS: #Eosinphils 0.4 thou/uL (0.0-0.7); #Lymphocytes 2.1 thou/uL (1.20-3.40); #Monocytes 0.8 thou/uL (0.11-0.59); #Neutrophils 3.7 thou/uL (1.40-6.50); %Basophils 0.3 % (0.0-1.0); %Lymphocytes 29.4 % (21.0-51.0); %Neutrophils 53.3 % (42.0-75.0); Hemoglobin 8.2 g/dL (12.0-16.0); Mean Corpuscular HGB CONC 31.2 g/dL (32.0-36.0); Mean Corpuscular Hemoglobin 28.9 pg (27.0-31.0); Mean Corpuscular Volume 92.8 fl (78.0-98.0); Mean Platelet Volume 6.8 fL (7.4-10.4); Platelet Count 238 thou/uL (130-400); RBC Distribution Width 14.8 % (11.5-14.5); Red Blood Cell (RBC) Count 2.82 mill/uL (4.20-5.40)
[2022-04-05 02:04] LABS: ALT (SGPT) Less than 7 U/L (8-55); AST (SGOT) 13 U/L (5-34); Albumin 3.5 g/dL (3.4-4.8); Alkaline Phosphatase 65 U/L (40-110); BUN (Urea Nitrogen) 29 mg/dL (9.8-20.1); Bilirubin, Total 0.5 mg/dL (0.2-1.2); Calc. Creatinine Clearance 0 mL/min (70-130); Calcium 7.8 mg/dL (7.8-10.44); Carbon Dioxide 19 mmol/L (23-31); Chloride 115 mmol/L (98-107); Estimated GFR 19; Globulin 2.5 g/dL (2.4-3.5); Glucose 97 mg/dL (83-110); Lipase 81 U/L (8-78); Potassium 5.1 mmol/L (3.5-5.1); Sodium 143 mmol/L (136-145)
[2022-04-05 02:08] LABS: Anion Gap 14 mmol/L (10-20)
== END 2022-04-05 03:15 | disposition home or self-care (01) ==
LOC: ERS 00:12
DX: M16.9 Osteoarthritis of hip, unspecified (principal); E78.00 Pure hypercholesterolemia, unspecified; I25.10 Atherosclerotic heart disease of native coronary artery without angina pectoris; E03.9 Hypothyroidism, unspecified; E11.9 Type 2 diabetes mellitus without complications; I10 Essential (primary) hypertension; J44.9 Chronic obstructive pulmonary disease, unspecified; Z79.899 Other long term (current) drug therapy; Z79.82 Long term (current) use of aspirin
CPT/HCPCS: 36415; 71045; 72170; 80053; 83690; 83880; 84484; 85025; 96372

== ENCOUNTER 2022-07-02 14:02 | Emergency (ER) | payer OTHER ==
[2022-07-02 14:34] LABS: #Eosinphils 0.2 thou/uL (0.0-0.7); #Lymphocytes 1.5 thou/uL (1.20-3.40); #Monocytes 0.6 thou/uL (0.11-0.59); #Neutrophils 3.1 thou/uL (1.40-6.50); %Basophils 0.6 % (0.0-1.0); %Eosinophils 4.4 % (0.0-10.0); %Lymphocytes 26.9 % (21.0-51.0); %Monocytes 11.5 % (0.0-10.0); %Neutrophils 56.6 % (42.0-75.0); Hemoglobin 11.1 g/dL (12.0-16.0); Mean Corpuscular Hemoglobin 31.4 pg (27.0-31.0); Mean Corpuscular Volume 95.3 fl (78.0-98.0); Mean Platelet Volume 6.9 fL (7.4-10.4); Platelet Count 239 10x3/uL (130-400); RBC Distribution Width 14.2 % (11.5-14.5); Red Blood Cell (RBC) Count 3.52 mill/uL (4.20-5.40); White Blood Cell (WBC) Count 5.6 10x3/uL (4.8-10.8)
[2022-07-02 14:56] LABS: ALT (SGPT) Less than 7 U/L (8-55); AST (SGOT) 11 U/L (5-34); Albumin 3.9 g/dL (3.4-4.8); Alkaline Phosphatase 67 U/L (40-110); Anion Gap 14 mmol/L (10-20); BUN (Urea Nitrogen) 35 mg/dL (9.8-20.1); Bilirubin, Total 0.6 mg/dL (0.2-1.2); Calc. Creatinine Clearance 0 mL/min (70-130); Calcium 8.8 mg/dL (7.8-10.44); Carbon Dioxide 19 mmol/L (23-31); Chloride 112 mmol/L (98-107); Estimated GFR 16; Glucose 89 mg/dL (83-110); Potassium 5.4 mmol/L (3.5-5.1); Protein, Total 6.9 g/dL (5.8-8.1); Sodium 140 mmol/L (136-145)
[2022-07-02] MEDS ORDERED: Ketorolac Tromethamine 30 MG/ML VIAL ONE (18:04)
== END 2022-07-02 19:07 | disposition home or self-care (01) ==
LOC: ERS 14:02
DX: I12.9 Hypertensive chronic kidney disease with stage 1 through stage 4 chronic kidney disease, or unspecified chronic kidney disease (principal); E11.22 Type 2 diabetes mellitus with diabetic chronic kidney disease; N18.4 Chronic kidney disease, stage 4 (severe); E87.5 Hyperkalemia; I25.10 Atherosclerotic heart disease of native coronary artery without angina pectoris; E78.00 Pure hypercholesterolemia, unspecified; E03.9 Hypothyroidism, unspecified; J44.9 Chronic obstructive pulmonary disease, unspecified
CPT/HCPCS: 36415; 80053; 84484; 85025; 93005; 96372; J1885

== ENCOUNTER 2022-08-20 21:09 | Emergency (ER) | payer OTHER ==
[2022-08-20 21:46] LABS: #Eosinphils 0.2 thou/uL (0.0-0.7); #Lymphocytes 1.9 thou/uL (1.20-3.40); #Monocytes 0.7 thou/uL (0.11-0.59); #Neutrophils 2.7 thou/uL (1.40-6.50); %Basophils 0.5 % (0.0-1.0); %Eosinophils 3.9 % (0.0-10.0); %Lymphocytes 34.2 % (21.0-51.0); %Monocytes 12.6 % (0.0-10.0); %Neutrophils 48.9 % (42.0-75.0); Mean Corpuscular HGB CONC 32.3 g/dL (32.0-36.0); Mean Corpuscular Hemoglobin 32.4 pg (27.0-31.0); Mean Platelet Volume 6.6 fL (7.4-10.4); Platelet Count 281 10x3/uL (130-400); Red Blood Cell (RBC) Count 3.38 mill/uL (4.20-5.40); White Blood Cell (WBC) Count 5.6 10x3/uL (4.8-10.8)
[2022-08-20] MEDS ORDERED: Morphine 4 MG/ML VIAL ONE ×2 (21:48→22:43)
[2022-08-20] MEDS ORDERED: Ondansetron PF 4 MG/2 ML Vial ONE (21:48)
[2022-08-20 22:01] LABS: Chloride 113 mmol/L (98-107); Sodium 142 mmol/L (136-145)
[2022-08-20 22:02] LABS: ALT (SGPT) Less than 7 U/L (8-55); AST (SGOT) 12 U/L (5-34); Albumin 3.7 g/dL (3.4-4.8); Alkaline Phosphatase 70 U/L (40-110); Anion Gap 13 mmol/L (10-20); BUN (Urea Nitrogen) 27 mg/dL (9.8-20.1); Bilirubin, Total 0.6 mg/dL (0.2-1.2); Calc. Creatinine Clearance 0 mL/min (70-130); Calcium 8.5 mg/dL (7.8-10.44); Carbon Dioxide 21 mmol/L (23-31); Estimated GFR 17; Globulin 2.9 g/dL (2.4-3.5); Glucose 90 mg/dL (83-110); Lipase 52 U/L (8-78); Protein, Total 6.6 g/dL (5.8-8.1)
== END 2022-08-20 23:19 | disposition home or self-care (01) ==
LOC: ERS 21:09
DX: D25.9 Leiomyoma of uterus, unspecified (principal); K43.9 Ventral hernia without obstruction or gangrene; E11.22 Type 2 diabetes mellitus with diabetic chronic kidney disease; I12.9 Hypertensive chronic kidney disease with stage 1 through stage 4 chronic kidney disease, or unspecified chronic kidney disease; N18.9 Chronic kidney disease, unspecified; E78.5 Hyperlipidemia, unspecified; E78.00 Pure hypercholesterolemia, unspecified; E03.9 Hypothyroidism, unspecified; J44.9 Chronic obstructive pulmonary disease, unspecified
CPT/HCPCS: 36415; 74176; 80053; 83690; 84484; 85025; 93005; 96374; 96375; 96376; J2270; J2405

== ENCOUNTER 2022-09-16 15:53 | Emergency (ER) | payer OTHER ==
[2022-09-16] MEDS ORDERED: Ketorolac Tromethamine 30 MG/ML VIAL ONE (16:47)
[2022-09-16 16:50] LABS: #Eosinphils 0.2 thou/uL (0.0-0.7); #Lymphocytes 1.9 thou/uL (1.20-3.40); #Monocytes 0.6 thou/uL (0.11-0.59); %Basophils 0.8 % (0.0-1.0); %Eosinophils 3.3 % (0.0-10.0); %Lymphocytes 33.3 % (21.0-51.0); %Monocytes 10.3 % (0.0-10.0); %Neutrophils 52.3 % (42.0-75.0); Hemoglobin 10.6 g/dL (12.0-16.0); Mean Corpuscular HGB CONC 32.8 g/dL (32.0-36.0); Mean Corpuscular Hemoglobin 33.7 pg (27.0-31.0); Mean Platelet Volume 6.9 fL (7.4-10.4); Platelet Count 247 10x3/uL (130-400); RBC Distribution Width 16.1 % (11.5-14.5); Red Blood Cell (RBC) Count 3.14 mill/uL (4.20-5.40); White Blood Cell (WBC) Count 5.7 10x3/uL (4.8-10.8)
[2022-09-16] MEDS ORDERED: Prochlorperazine 10 MG/2 ML VIAL ONE (16:52)
[2022-09-16] MEDS ORDERED: Prochlorperazine Maleate 5 MG TAB ONE (17:05)
[2022-09-16 17:12] LABS: ALT (SGPT) Less than 7 U/L (8-55); AST (SGOT) 11 U/L (5-34); Albumin 3.6 g/dL (3.4-4.8); Alkaline Phosphatase 66 U/L (40-110); Anion Gap 13 mmol/L (10-20); BUN (Urea Nitrogen) 33 mg/dL (9.8-20.1); Bilirubin, Total 0.5 mg/dL (0.2-1.2); Calc. Creatinine Clearance 0 mL/min (70-130); Calcium 8.7 mg/dL (7.8-10.44); Carbon Dioxide 20 mmol/L (23-31); Chloride 114 mmol/L (98-107); Estimated GFR 17; Globulin 2.8 g/dL (2.4-3.5); Glucose 97 mg/dL (83-110); Lipase 55 U/L (8-78); Potassium 5.1 mmol/L (3.5-5.1); Protein, Total 6.4 g/dL (5.8-8.1); Sodium 142 mmol/L (136-145)
[2022-09-16] MEDS ORDERED: Morphine 4 MG/ML VIAL ONE (17:49)
[2022-09-16 18:46] LABS: Bilirubin Negative (Negative); Blood, Urine Negative (Negative); Clarity Clear (Clear); Glucose, Urine (Dipstick) Normal (Negative); Ketone, Urine Negative (Negative); Leukocyte Negative Leu/uL (Negative); Nitrite Negative (Negative); Protein, Urine (Dipstick) 10 mg/dL (Neg-Trace); Specific Gravity, Urine 1.013 (1.002-1.036); Urobilinogen Normal mg/dL (Less than 2); pH, Urine 5.5 (5.0-9.0)
[2022-09-16] MEDS ORDERED: Dicyclomine 20 MG/2 ML VIAL ONE (19:23)
== END 2022-09-16 19:40 | disposition home or self-care (01) ==
LOC: ERS 15:53
DX: R10.9 Unspecified abdominal pain (principal); I12.9 Hypertensive chronic kidney disease with stage 1 through stage 4 chronic kidney disease, or unspecified chronic kidney disease; N18.9 Chronic kidney disease, unspecified; E11.22 Type 2 diabetes mellitus with diabetic chronic kidney disease; E78.00 Pure hypercholesterolemia, unspecified; I25.10 Atherosclerotic heart disease of native coronary artery without angina pectoris; E03.9 Hypothyroidism, unspecified; J44.9 Chronic obstructive pulmonary disease, unspecified
CPT/HCPCS: 36415; 80053; 81003; 83690; 85025; 96361; 96372; 96374; J0780; J1885; J2270; Q0164

== ENCOUNTER 2022-09-25 19:35 | Emergency (ER) | payer OTHER ==
[2022-09-25 20:38] LABS: #Eosinphils 0.2 thou/uL (0.0-0.7); #Lymphocytes 1.8 thou/uL (1.20-3.40); #Monocytes 0.8 thou/uL (0.11-0.59); #Neutrophils 3.4 thou/uL (1.40-6.50); %Basophils 0.4 % (0.0-1.0); %Eosinophils 3.4 % (0.0-10.0); %Lymphocytes 28.3 % (21.0-51.0); %Monocytes 13.1 % (0.0-10.0); %Neutrophils 54.8 % (42.0-75.0); Hemoglobin 10.2 g/dL (12.0-16.0); Mean Corpuscular HGB CONC 34.8 g/dL (32.0-36.0); Mean Corpuscular Hemoglobin 35.1 pg (27.0-31.0); Mean Platelet Volume 6.9 fL (7.4-10.4); Platelet Count 200 10x3/uL (130-400); Red Blood Cell (RBC) Count 2.89 mill/uL (4.20-5.40); White Blood Cell (WBC) Count 6.3 10x3/uL (4.8-10.8)
[2022-09-25 21:03] LABS: ALT (SGPT) Less than 7 U/L (8-55); AST (SGOT) 11 U/L (5-34); Albumin 3.5 g/dL (3.4-4.8); Alkaline Phosphatase 68 U/L (40-110); Anion Gap 12 mmol/L (10-20); BUN (Urea Nitrogen) 28 mg/dL (9.8-20.1); Bilirubin, Total 0.3 mg/dL (0.2-1.2); Calc. Creatinine Clearance 0 mL/min (70-130); Calcium 8.8 mg/dL (7.8-10.44); Carbon Dioxide 21 mmol/L (23-31); Chloride 113 mmol/L (98-107); Estimated GFR 18; Globulin 2.7 g/dL (2.4-3.5); Glucose 101 mg/dL (83-110); Lipase 64 U/L (8-78); Protein, Total 6.2 g/dL (5.8-8.1); Sodium 141 mmol/L (136-145)
[2022-09-25 22:29] LABS: Bilirubin Negative (Negative); Blood, Urine Negative (Negative); Clarity Clear (Clear); Glucose, Urine (Dipstick) Normal (Negative); Ketone, Urine Negative (Negative); Leukocyte Negative Leu/uL (Negative); Nitrite Negative (Negative); Protein, Urine (Dipstick) Negative (Neg-Trace); Specific Gravity, Urine 1.012 (1.002-1.036); Urobilinogen Normal mg/dL (Less than 2); pH, Urine 5.5 (5.0-9.0)
[2022-09-25] MEDS ORDERED: Acetaminophen 500 MG TAB ONE (23:04)
== END 2022-09-26 00:20 | disposition home or self-care (01) ==
LOC: ERS 19:35
DX: R55 Syncope and collapse (principal); R42 Dizziness and giddiness; R10.9 Unspecified abdominal pain; I10 Essential (primary) hypertension; E11.9 Type 2 diabetes mellitus without complications; J44.9 Chronic obstructive pulmonary disease, unspecified; E78.5 Hyperlipidemia, unspecified; E03.9 Hypothyroidism, unspecified; I25.10 Atherosclerotic heart disease of native coronary artery without angina pectoris
CPT/HCPCS: 36415; 70450; 74176; 80053; 81003; 83690; 84484; 85025; 93005; 94760

== ENCOUNTER 2023-01-22 17:23 | Emergency (ER) | payer OTHER ==
[2023-01-22 18:45] LABS: #Basophils 0.1 thou/uL (0.0-0.2); #Eosinphils 0.3 thou/uL (0.0-0.7); #Monocytes 0.8 thou/uL (0.11-0.59); %Basophils 0.8 % (0.0-1.0); %Eosinophils 5.2 % (0.0-10.0); %Lymphocytes 32.6 % (21.0-51.0); %Monocytes 12.3 % (0.0-10.0); %Neutrophils 48.9 % (42.0-75.0); Hematocrit 27.6 % (36.0-47.0); Hemoglobin 9.4 g/dL (12.0-16.0); Mean Corpuscular HGB CONC 34.1 g/dL (32.0-36.0); Mean Corpuscular Hemoglobin 32.5 pg (27.0-31.0); Mean Corpuscular Volume 95.5 fl (78.0-98.0); Platelet Count 230 10x3/uL (130-400); RBC Distribution Width 14.9 % (11.5-14.5); Red Blood Cell (RBC) Count 2.89 mill/uL (4.20-5.40); White Blood Cell (WBC) Count 6.2 10x3/uL (4.8-10.8)
[2023-01-22 18:58] LABS: SARS-CoV-2 NAA Rapid Test Not Detected (NotDetected)
[2023-01-22 19:12] LABS: ALT (SGPT) Less than 7 U/L (8-55); AST (SGOT) 12 U/L (5-34); Albumin 3.5 g/dL (3.4-4.8); Alkaline Phosphatase 64 U/L (40-110); Anion Gap 13 mmol/L (10-20); BUN (Urea Nitrogen) 52 mg/dL (9.8-20.1); Bilirubin, Total 0.4 mg/dL (0.2-1.2); Calc. Creatinine Clearance 0 mL/min (70-130); Calcium 8.5 mg/dL (7.8-10.44); Carbon Dioxide 21 mmol/L (23-31); Chloride 109 mmol/L (98-107); Estimated GFR 14; Globulin 2.8 g/dL (2.4-3.5); Glucose 99 mg/dL (83-110); Potassium 4.8 mmol/L (3.5-5.1); Protein, Total 6.3 g/dL (5.8-8.1); Sodium 138 mmol/L (136-145)
[2023-01-22 19:13] LABS: Troponin I 0.013 ng/mL (< 0.028)
== END 2023-01-22 19:42 | disposition home or self-care (01) ==
LOC: ERS 17:23
DX: R09.81 Nasal congestion (principal); R05.9 Cough, unspecified; Z79.82 Long term (current) use of aspirin; J44.9 Chronic obstructive pulmonary disease, unspecified; E03.9 Hypothyroidism, unspecified; E11.9 Type 2 diabetes mellitus without complications; E78.5 Hyperlipidemia, unspecified; Z79.01 Long term (current) use of anticoagulants; Z79.899 Other long term (current) drug therapy
CPT/HCPCS: 0240U; 71045; 80053; 83880; 84484; 85025; 93005; 99285; 36415

== ENCOUNTER 2023-02-02 13:35 | Inpatient (IN) | payer OTHER ==
[2023-02-02 15:03] LABS: SARS-CoV-2 NAA Rapid Test Not Detected (NotDetected)
[2023-02-02 15:18] LABS: Base Excess -5.4 mEq/L (-2.0 to +3.0); Calcium, Ionized (venous) 1.04 mmol/L (1.16-1.32); Chloride (VBG) 109 mmol/L (98-106); Hematocrit-VBG 31 % (36.0-47.0); Hemoglobin (Hb) 10.6 g/dL (11.7-16.1); Potassium (VBG) 5.15 mmol/L (3.70-5.30); Sodium 138.7 mmol/L (133-146); pH (venous) 7.334 (7.32-7.43)
[2023-02-02 15:34] LABS: #Basophils 0.1 thou/uL (0.0-0.2); #Eosinphils 0.2 thou/uL (0.0-0.7); #Neutrophils 8.7 thou/uL (1.40-6.50); %Basophils 0.5 % (0.0-1.0); %Eosinophils 1.5 % (0.0-10.0); %Lymphocytes 9.1 % (21.0-51.0); %Monocytes 9.4 % (0.0-10.0); %Neutrophils 79.2 % (42.0-75.0); Hematocrit 28.8 % (36.0-47.0); Hemoglobin 9.4 g/dL (12.0-16.0); Mean Corpuscular HGB CONC 32.6 g/dL (32.0-36.0); Mean Corpuscular Hemoglobin 32.3 pg (27.0-31.0); Platelet Count 229 10x3/uL (130-400); RBC Distribution Width 15.5 % (11.5-14.5); Red Blood Cell (RBC) Count 2.91 mill/uL (4.20-5.40); White Blood Cell (WBC) Count 10.9 10x3/uL (4.8-10.8)
[2023-02-02 15:56] LABS: ALT (SGPT) Less than 7 U/L (8-55); AST (SGOT) 15 U/L (5-34); Albumin 3.7 g/dL (3.4-4.8); Alkaline Phosphatase 73 U/L (40-110); Anion Gap 17 mmol/L (10-20); BUN (Urea Nitrogen) 46 mg/dL (9.8-20.1); Bilirubin, Total 0.6 mg/dL (0.2-1.2); Calc. Creatinine Clearance 0 mL/min (70-130); Calcium 8.5 mg/dL (7.8-10.44); Carbon Dioxide 18 mmol/L (23-31); Chloride 111 mmol/L (98-107); Estimated GFR 16; Glucose 96 mg/dL (83-110); Magnesium 2.2 mg/dL (1.6-2.6); Potassium 5.5 mmol/L (3.5-5.1); Protein, Total 6.7 g/dL (5.8-8.1); Sodium 140 mmol/L (136-145)
[2023-02-02 16:01] LABS: Troponin I Less than 0.010 ng/mL (< 0.028)
[2023-02-02] MEDS ORDERED: Acetaminophen 500 MG TAB ONE (16:11)
[2023-02-02] MEDS ORDERED: Morphine 4 MG/ML VIAL ONE (16:11)
[2023-02-02] MEDS ORDERED: Ondansetron PF 4 MG/2 ML Vial ONE (16:11)
[2023-02-02] MEDS ORDERED: levETIRAcetam 500 MG/5 ML VIAL ONE (16:37)
[2023-02-02 17:07] LABS: Bilirubin Negative (Negative); Blood, Urine Negative (Negative); CAUTI Indications for Culture Alt mental st,lethar; Clarity Clear (Clear); Glucose, Urine (Dipstick) Normal (Negative); Ketone, Urine Negative (Negative); Leukocyte Negative Leu/uL (Negative); Nitrite Negative (Negative); Protein, Urine (Dipstick) Negative (Neg-Trace); RBC/HPF 0-3 HPF (0-3); Specific Gravity, Urine 1.011 (1.002-1.036); Squamous Epithelial 0-3 HPF (0-3); Urobilinogen Normal mg/dL (Less than 2); WBC/HPF 0-3 HPF (0-3)
[2023-02-02 17:10] LABS: Bacteria/HPF 1+ HPF (None Seen)
[2023-02-02 17:11] LABS: Urine Culture Reflex No No
[2023-02-02] MEDS ORDERED: cefTRIAXone (ROCEPHIN) 2 GM VIAL ONE (17:34)
[2023-02-02] MEDS ORDERED: Doxycycline 100 MG in Sodium Chloride 0.9% 100 ML IVPB SCH (17:45)
[2023-02-02] MEDS ORDERED: Ondansetron ODT 4 MG TAB PO PRN (18:32)
[2023-02-02] MEDS ORDERED: Furosemide 20 MG/2 ML VIAL SLOW IVP SCH (18:45)
[2023-02-02] MEDS ORDERED: Ipratropium/Albuterol 3 ML NEB NEB PRN (18:48)
[2023-02-02] MEDS ORDERED: Acetaminophen 325 MG TAB ONE (20:14)
[2023-02-02] MEDS ORDERED: Furosemide 40 MG TAB ONE (21:13)
[2023-02-02] MEDS ORDERED: Furosemide 40 MG/4 ML VIAL ONE (21:14)
[2023-02-02] MEDS: Acetaminophen 325 MG TAB PO PRN (21:38)
[2023-02-02] MEDS: Atorvastatin Calcium 40 MG TAB PO SCH (21:51)
[2023-02-02 22:36] LABS: Troponin I Less than 0.010 ng/mL (< 0.028)
[2023-02-03 05:53] LABS: #Basophils 0.1 thou/uL (0.0-0.2); #Eosinphils 0.2 thou/uL (0.0-0.7); #Monocytes 1.1 thou/uL (0.11-0.59); #Neutrophils 11.1 thou/uL (1.40-6.50); %Basophils 0.4 % (0.0-1.0); %Eosinophils 1.1 % (0.0-10.0); %Lymphocytes 11.8 % (21.0-51.0); %Monocytes 7.9 % (0.0-10.0); %Neutrophils 78.4 % (42.0-75.0); Hematocrit 27.3 % (36.0-47.0); Hemoglobin 8.8 g/dL (12.0-16.0); Mean Corpuscular HGB CONC 32.2 g/dL (32.0-36.0); Mean Corpuscular Hemoglobin 31.9 pg (27.0-31.0); Mean Corpuscular Volume 98.9 fl (78.0-98.0); Mean Platelet Volume 9.1 fL (7.4-10.4); Platelet Count 207 10x3/uL (130-400); RBC Distribution Width 15.4 % (11.5-14.5); Red Blood Cell (RBC) Count 2.76 mill/uL (4.20-5.40); White Blood Cell (WBC) Count 14.1 10x3/uL (4.8-10.8)
[2023-02-03] MEDS: Acetaminophen 325 MG TAB PO PRN ×2 (05:58→21:40)
[2023-02-03 06:08] VITALS: BMI 42.3
[2023-02-03 06:20] LABS: Anion Gap 12 mmol/L (10-20); BUN (Urea Nitrogen) 48 mg/dL (9.8-20.1); Calc. Creatinine Clearance 29 mL/min (70-130); Calcium 8.4 mg/dL (7.8-10.44); Carbon Dioxide 22 mmol/L (23-31); Cardiac Risk 3.8 (Less than 4.5); Chloride 111 mmol/L (98-107); Cholesterol 145 mg/dl (< 200 Desired); Estimated GFR 16; Glucose 91 mg/dL (83-110); HDL Cholesterol 38 mg/dL (>60 Neg Risk); LDL Cholesterol, Calculated 101 mg/dL; Potassium 5.1 mmol/L (3.5-5.1); Sodium 140 mmol/L (136-145); Triglycerides 31 mg/dL (Less than 150)
[2023-02-03] MEDS: Doxycycline 100 MG in Sodium Chloride 0.9% 100 ML IVPB SCH ×2 (06:23→17:34)
[2023-02-03] MEDS ORDERED: Apixaban 2.5 MG TAB PO SCH ×2 (09:15→21:00)
[2023-02-03] MEDS: Mometasone 100 MCG/Formoterol 5 MCG 120 PUFF INHALER INH SCH ×2 (18:41→18:48)
[2023-02-03] MEDS: cefTRIAXone\\ROCEPHIN 1 GM in Sodium Chloride 0.9% 100 ML IVPB SCH (18:41)
[2023-02-03] MEDS: Atorvastatin Calcium 40 MG TAB PO SCH (21:09)
[2023-02-03] MEDS: dilTIAZem 30 MG TAB PO SCH (21:09)
[2023-02-03] MEDS: Apixaban 2.5 MG TAB PO SCH (21:09)
[2023-02-03] MEDS ORDERED: Lorazepam 2 MG/ML VIAL SLOW IVP SCH (23:59)
[2023-02-04] MEDS: Mometasone 100 MCG/Formoterol 5 MCG 120 PUFF INHALER INH SCH ×2 (06:30→18:20)
[2023-02-04] MEDS: Doxycycline 100 MG in Sodium Chloride 0.9% 100 ML IVPB SCH ×2 (06:46→18:35)
[2023-02-04] MEDS: Levothyroxine Sodium 50 MCG TAB PO SCH (06:46)
[2023-02-04] MEDS: Calcitriol 0.25 MCG CAP PO SCH (08:52)
[2023-02-04] MEDS: Aspirin 81 mg Enteric Coated Tablet PO SCH (08:53)
[2023-02-04] MEDS: Folic Acid/Vit B Comp W-C PO SCH (08:54)
[2023-02-04] MEDS: Apixaban 2.5 MG TAB PO SCH ×2 (08:54→20:30)
[2023-02-04] MEDS: Sertraline 25 MG TAB PO SCH (08:54)
[2023-02-04] MEDS: dilTIAZem 30 MG TAB PO SCH ×2 (08:55→20:29)
[2023-02-04] MEDS ORDERED: Morphine 2 MG/ML VIAL SLOW IVP PRN (10:49)
[2023-02-04] MEDS: cefTRIAXone\\ROCEPHIN 1 GM in Sodium Chloride 0.9% 100 ML IVPB SCH (17:47)
[2023-02-04] MEDS: Atorvastatin Calcium 40 MG TAB PO SCH (20:30)
[2023-02-04] MEDS: Acetaminophen 325 MG TAB PO PRN (20:32)
[2023-02-05] MEDS: Levothyroxine Sodium 50 MCG TAB PO SCH (05:52)
[2023-02-05] MEDS: Doxycycline 100 MG in Sodium Chloride 0.9% 100 ML IVPB SCH (05:52)
[2023-02-05] MEDS: Mometasone 100 MCG/Formoterol 5 MCG 120 PUFF INHALER INH SCH (06:53)
[2023-02-05 08:07] LABS: #Eosinphils 0.3 thou/uL (0.0-0.7); #Monocytes 0.7 thou/uL (0.11-0.59); #Neutrophils 4.4 thou/uL (1.40-6.50); %Basophils 0.6 % (0.0-1.0); %Lymphocytes 19.2 % (21.0-51.0); %Monocytes 10.8 % (0.0-10.0); %Neutrophils 64.3 % (42.0-75.0); Hemoglobin 9.6 g/dL (12.0-16.0); Mean Corpuscular HGB CONC 33.1 g/dL (32.0-36.0); Mean Corpuscular Hemoglobin 32.3 pg (27.0-31.0); Mean Corpuscular Volume 97.6 fl (78.0-98.0); Mean Platelet Volume 9.2 fL (7.4-10.4); Platelet Count 228 10x3/uL (130-400); RBC Distribution Width 15.3 % (11.5-14.5); Red Blood Cell (RBC) Count 2.97 mill/uL (4.20-5.40); White Blood Cell (WBC) Count 6.9 10x3/uL (4.8-10.8)
[2023-02-05 08:29] LABS: Anion Gap 16 mmol/L (10-20); BUN (Urea Nitrogen) 46 mg/dL (9.8-20.1); Calc. Creatinine Clearance 35 mL/min (70-130); Calcium 8.8 mg/dL (7.8-10.44); Carbon Dioxide 18 mmol/L (23-31); Chloride 113 mmol/L (98-107); Estimated GFR 20; Glucose 78 mg/dL (83-110); Potassium 4.9 mmol/L (3.5-5.1); Sodium 142 mmol/L (136-145)
[2023-02-05] MEDS: Aspirin 81 mg Enteric Coated Tablet PO SCH (10:54)
[2023-02-05] MEDS: Apixaban 2.5 MG TAB PO SCH (10:57)
[2023-02-05] MEDS: dilTIAZem 30 MG TAB PO SCH (10:57)
[2023-02-05] MEDS: Calcitriol 0.25 MCG CAP PO SCH (10:57)
[2023-02-05] MEDS: Sertraline 25 MG TAB PO SCH (10:57)
[2023-02-05] MEDS: Folic Acid/Vit B Comp W-C PO SCH (10:57)
[2023-02-05] MEDS: Acetaminophen 325 MG TAB PO PRN (10:58)
[2023-02-05 12:13] VITALS: BP 162/70; TEMP 98.3
== END 2023-02-05 15:17 | disposition home or self-care (01) | DRG 193 ==
LOC: ERS 13:35 → ERHOLD 17:36 → 2SE 02-03 00:53
PROVIDERS: ADMIT Family Medicine; ATTEND Hospitalist
PROC: 4A043R1 Measurement of Venous Saturation, Peripheral, Percutaneous Approach (ICD-10-PCS; principal; 2023-02-02)
DX: J18.9 Pneumonia, unspecified organism (principal); I50.21 Acute systolic (congestive) heart failure; I13.0 Hypertensive heart and chronic kidney disease with heart failure and stage 1 through stage 4 chronic kidney disease, or unspecified chronic kidney disease; R55 Syncope and collapse; I25.10 Atherosclerotic heart disease of native coronary artery without angina pectoris; N18.9 Chronic kidney disease, unspecified; E03.9 Hypothyroidism, unspecified; J44.9 Chronic obstructive pulmonary disease, unspecified; Z86.711 Personal history of pulmonary embolism; Z79.01 Long term (current) use of anticoagulants; Z88.0 Allergy status to penicillin; Z79.82 Long term (current) use of aspirin; Z79.899 Other long term (current) drug therapy; Z90.89 Acquired absence of other organs; E87.5 Hyperkalemia; D51.0 Vitamin B12 deficiency anemia due to intrinsic factor deficiency; D63.1 Anemia in chronic kidney disease; E78.00 Pure hypercholesterolemia, unspecified; E11.22 Type 2 diabetes mellitus with diabetic chronic kidney disease; F03.90 Unspecified dementia, unspecified severity, without behavioral disturbance, psychotic disturbance, mood disturbance, and anxiety
CPT/HCPCS: 36415; 70450; 70551; 71045; 74018; 74176; 80048; 80053; 80061; 81001; 82805; 83735; 83880; 84145; 84146; 84484; 85025; 93005; 93306; 93798; 94664; 94760; 95712; 95819; 95957; 96365; 96367; 96375; J0696; J1940; J1953; J2060; J2270; J2272; J2405; J3490

== ENCOUNTER 2023-04-09 04:28 | Emergency (ER) | payer OTHER ==
[2023-04-09 05:36] LABS: Bacteria/HPF 3+ HPF (None Seen); Bilirubin Negative (Negative); Blood, Urine Negative (Negative); CAUTI Indications for Culture Alt mental st,lethar; Clarity Turbid (Clear); Glucose, Urine (Dipstick) Normal (Negative); Ketone, Urine Negative (Negative); Leukocyte Negative Leu/uL (Negative); Nitrite Negative (Negative); Protein, Urine (Dipstick) Negative (Neg-Trace); RBC/HPF None Seen HPF (0-3); Specific Gravity, Urine 1.012 (1.002-1.036); Urobilinogen Normal mg/dL (Less than 2); WBC/HPF 0-3 HPF (0-3); pH, Urine 5.5 (5.0-9.0)
[2023-04-09 05:37] LABS: Urine Culture Reflex No No
[2023-04-09 05:49] LABS: #Basophils 0.1 thou/uL (0.0-0.2); #Eosinphils 0.4 thou/uL (0.0-0.7); #Neutrophils 5.7 thou/uL (1.40-6.50); %Basophils 0.6 % (0.0-1.0); %Eosinophils 4.2 % (0.0-10.0); %Lymphocytes 18.4 % (21.0-51.0); %Monocytes 11.3 % (0.0-10.0); %Neutrophils 65.2 % (42.0-75.0); Mean Corpuscular HGB CONC 33.3 g/dL (32.0-36.0); Mean Corpuscular Volume 96.1 fl (78.0-98.0); Platelet Count 256 10x3/uL (130-400); RBC Distribution Width 13.3 % (11.5-14.5); Red Blood Cell (RBC) Count 2.81 mill/uL (4.20-5.40); White Blood Cell (WBC) Count 8.8 10x3/uL (4.8-10.8)
[2023-04-09 06:12] LABS: ALT (SGPT) Less than 7 U/L (8-55); AST (SGOT) 14 U/L (5-34); Albumin 3.4 g/dL (3.4-4.8); Alkaline Phosphatase 60 U/L (40-110); Anion Gap 14 mmol/L (10-20); BUN (Urea Nitrogen) 26 mg/dL (9.8-20.1); Bilirubin, Total 0.5 mg/dL (0.2-1.2); Calc. Creatinine Clearance 0 mL/min (70-130); Calcium 8.5 mg/dL (7.8-10.44); Carbon Dioxide 21 mmol/L (23-31); Chloride 111 mmol/L (98-107); Estimated GFR 20; Globulin 3.2 g/dL (2.4-3.5); Glucose 104 mg/dL (83-110); Potassium 4.6 mmol/L (3.5-5.1); Protein, Total 6.6 g/dL (5.8-8.1); Sodium 141 mmol/L (136-145)
[2023-04-09 06:16] LABS: Troponin I 0.014 ng/mL (< 0.028)
[2023-04-09] MEDS ORDERED: Morphine 4 MG/ML VIAL ONE (07:10)
== END 2023-04-09 09:40 | disposition home or self-care (01) ==
LOC: SUATTDRO 04:28 → ERS 04:28
PROVIDERS: ATTEND Hospitalist
DX: R41.82 Altered mental status, unspecified (principal); R55 Syncope and collapse; Z86.711 Personal history of pulmonary embolism; E78.5 Hyperlipidemia, unspecified; I25.10 Atherosclerotic heart disease of native coronary artery without angina pectoris; E03.9 Hypothyroidism, unspecified; E11.9 Type 2 diabetes mellitus without complications; I10 Essential (primary) hypertension; J44.9 Chronic obstructive pulmonary disease, unspecified; Z79.899 Other long term (current) drug therapy
CPT/HCPCS: 36415; 51701; 70450; 71045; 80053; 81001; 83880; 84484; 85025; 87086; 93005; 96374; J2270

== ENCOUNTER 2023-05-10 19:28 | Emergency (ER) | payer OTHER ==
[2023-05-10 20:45] LABS: #Basophils 0.1 thou/uL (0.0-0.2); #Eosinphils 0.3 thou/uL (0.0-0.7); #Monocytes 0.8 thou/uL (0.11-0.59); #Neutrophils 4.4 thou/uL (1.40-6.50); %Basophils 0.9 % (0.0-1.0); %Eosinophils 4.4 % (0.0-10.0); %Lymphocytes 26.4 % (21.0-51.0); %Monocytes 10.4 % (0.0-10.0); %Neutrophils 57.6 % (42.0-75.0); Hematocrit 29.9 % (36.0-47.0); Mean Corpuscular HGB CONC 33.4 g/dL (32.0-36.0); Mean Corpuscular Hemoglobin 31.3 pg (27.0-31.0); Mean Corpuscular Volume 93.4 fl (78.0-98.0); Mean Platelet Volume 9.3 fL (7.4-10.4); Platelet Count 257 10x3/uL (130-400); RBC Distribution Width 13.9 % (11.5-14.5); White Blood Cell (WBC) Count 7.6 10x3/uL (4.8-10.8)
[2023-05-10] MEDS ORDERED: Morphine 4 MG/ML VIAL ONE (20:55)
[2023-05-10 21:12] LABS: ALT (SGPT) Less than 7 U/L (8-55); AST (SGOT) 11 U/L (5-34); Albumin 3.6 g/dL (3.4-4.8); Alkaline Phosphatase 66 U/L (40-110); Anion Gap 13 mmol/L (10-20); BUN (Urea Nitrogen) 27 mg/dL (9.8-20.1); Bilirubin, Total 0.4 mg/dL (0.2-1.2); Calc. Creatinine Clearance 0 mL/min (70-130); Calcium 8.4 mg/dL (7.8-10.44); Carbon Dioxide 21 mmol/L (23-31); Chloride 110 mmol/L (98-107); Estimated GFR 18; Globulin 3.2 g/dL (2.4-3.5); Glucose 114 mg/dL (83-110); Potassium 4.7 mmol/L (3.5-5.1); Protein, Total 6.8 g/dL (5.8-8.1); Sodium 139 mmol/L (136-145)
[2023-05-10 22:27] LABS: Troponin I 0.027 ng/mL (< 0.028)
[2023-05-10 23:15] LABS: Bacteria/HPF 4+ HPF (None Seen); Bilirubin Negative (Negative); Blood, Urine 2+ (Negative); CAUTI Indications for Culture Alt mental st,lethar; Clarity Turbid (Clear); Glucose, Urine (Dipstick) Normal (Negative); Ketone, Urine Negative (Negative); Leukocyte 75 Leu/uL (Negative); Nitrite Negative (Negative); Protein, Urine (Dipstick) 10 mg/dL (Neg-Trace); Specific Gravity, Urine 1.013 (1.002-1.036); Squamous Epithelial 0-3 HPF (0-3); Urobilinogen Normal mg/dL (Less than 2)
[2023-05-10 23:17] LABS: Urine Culture Reflex Yes Yes
== END 2023-05-11 00:25 | disposition home or self-care (01) ==
LOC: ERS 19:28
DX: N39.0 Urinary tract infection, site not specified (principal); R55 Syncope and collapse; E78.5 Hyperlipidemia, unspecified; I25.10 Atherosclerotic heart disease of native coronary artery without angina pectoris; E03.9 Hypothyroidism, unspecified; E11.9 Type 2 diabetes mellitus without complications; I10 Essential (primary) hypertension; J44.9 Chronic obstructive pulmonary disease, unspecified; Z79.899 Other long term (current) drug therapy
CPT/HCPCS: 36415; 74176; 80053; 81001; 83880; 84484; 85025; 87086; 93005; 96374; J2270

== ENCOUNTER 2023-08-04 13:51 | Emergency (ER) | payer OTHER ==
[2023-08-04 15:33] LABS: #Basophils 0.1 thou/uL (0.0-0.2); #Eosinphils 0.2 thou/uL (0.0-0.7); #Monocytes 0.6 thou/uL (0.11-0.59); #Neutrophils 2.9 thou/uL (1.40-6.50); %Basophils 0.9 % (0.0-1.0); %Eosinophils 4.2 % (0.0-10.0); %Lymphocytes 31.5 % (21.0-51.0); %Monocytes 10.5 % (0.0-10.0); %Neutrophils 52.5 % (42.0-75.0); Hematocrit 29.7 % (36.0-47.0); Mean Corpuscular HGB CONC 33.7 g/dL (32.0-36.0); Mean Corpuscular Hemoglobin 31.3 pg (27.0-31.0); Mean Corpuscular Volume 93.1 fl (78.0-98.0); Mean Platelet Volume 8.9 fL (7.4-10.4); Platelet Count 235 10x3/uL (130-400); RBC Distribution Width 15.9 % (11.5-14.5); Red Blood Cell (RBC) Count 3.19 mill/uL (4.20-5.40); White Blood Cell (WBC) Count 5.5 10x3/uL (4.8-10.8)
[2023-08-04 15:52] LABS: ALT (SGPT) Less than 7 U/L (8-55); AST (SGOT) 10 U/L (5-34); Albumin 3.7 g/dL (3.4-4.8); Alkaline Phosphatase 71 U/L (40-110); Anion Gap 12 mmol/L (10-20); BUN (Urea Nitrogen) 40 mg/dL (9.8-20.1); Bilirubin, Total 0.5 mg/dL (0.2-1.2); Calc. Creatinine Clearance 0 mL/min (70-130); Calcium 8.6 mg/dL (7.8-10.44); Carbon Dioxide 23 mmol/L (23-31); Chloride 110 mmol/L (98-107); Estimated GFR 16; Glucose 85 mg/dL (83-110); Lipase 45 U/L (8-78); Magnesium 2.7 mg/dL (1.6-2.6); Potassium 4.7 mmol/L (3.5-5.1); Protein, Total 6.7 g/dL (5.8-8.1); Sodium 140 mmol/L (136-145)
[2023-08-04 15:55] LABS: Troponin I Less than 0.010 ng/mL (< 0.028)
[2023-08-04 16:11] LABS: Influenza A by NAA Not Detected (NotDetected); Influenza B by NAA Not Detected (NotDetected); SARS-CoV-2 NAA Rapid Test DETECTED (NotDetected)
== END 2023-08-04 18:05 | disposition home or self-care (01) ==
LOC: ERS 13:51
DX: U07.1 COVID-19 (principal); E11.9 Type 2 diabetes mellitus without complications; J44.9 Chronic obstructive pulmonary disease, unspecified; I74.9 Embolism and thrombosis of unspecified artery; I25.10 Atherosclerotic heart disease of native coronary artery without angina pectoris; I10 Essential (primary) hypertension; F03.90 Unspecified dementia, unspecified severity, without behavioral disturbance, psychotic disturbance, mood disturbance, and anxiety; Z55.6 Problems related to health literacy; Z79.899 Other long term (current) drug therapy; Z79.82 Long term (current) use of aspirin
CPT/HCPCS: 0240U; 71045; 74176; 80053; 83690; 83735; 83880; 84484; 85025; 85379; 93005; 36415

== ENCOUNTER 2023-12-16 19:53 | Emergency (ER) | payer OTHER ==
[2023-12-16 20:51] LABS: #Basophils 0.05 10x3/uL (0.0-0.2); %Basophils 0.9 % (0.0-1.0); %Eosinophils 4.6 % (0.0-10.0); %Monocytes 12.2 % (0.0-10.0); %Neutrophils 46.1 % (42.0-75.0); Hematocrit 28.8 % (36.0-47.0); Mean Corpuscular HGB CONC 34.7 g/dL (32.0-36.0); Mean Corpuscular Hemoglobin 36.2 pg (27.0-31.0); Mean Corpuscular Volume 104.3 fL (78.0-98.0); Mean Platelet Volume 9.1 fL (7.4-10.4); Platelet Count 208 10x3/uL (130-400); RBC Distribution Width 14.2 % (11.5-14.5); Red Blood Cell (RBC) Count 2.76 mill/uL (4.20-5.40)
[2023-12-16 21:07] LABS: ALT (SGPT) 5 U/L (8-55); AST (SGOT) 13 U/L (5-34); Albumin 3.6 g/dL (3.4-4.8); Alkaline Phosphatase 66 U/L (40-110); Anion Gap 16 mmol/L (10-20); BUN (Urea Nitrogen) 35 mg/dL (9.8-20.1); Bilirubin, Total 0.5 mg/dL (0.2-1.2); Calc. Creatinine Clearance 0 mL/min (70-130); Calcium 8.8 mg/dL (7.8-10.44); Carbon Dioxide 23 mmol/L (23-31); Chloride 111 mmol/L (98-107); Estimated GFR 18; Glucose 98 mg/dL (83-110); Potassium 4.7 mmol/L (3.5-5.1); Protein, Total 6.6 g/dL (5.8-8.1); Sodium 145 mmol/L (136-145)
[2023-12-16] MEDS ORDERED: Ketorolac Tromethamine 30 MG (1 mL) VIAL ONE (23:51)
[2023-12-17] MEDS ORDERED: Acetaminophen 500 MG TAB ONE (00:21)
== END 2023-12-17 02:38 | disposition home or self-care (01) ==
LOC: ERS 19:53
DX: R41.82 Altered mental status, unspecified (principal); F03.90 Unspecified dementia, unspecified severity, without behavioral disturbance, psychotic disturbance, mood disturbance, and anxiety; E11.9 Type 2 diabetes mellitus without complications; I10 Essential (primary) hypertension; J44.9 Chronic obstructive pulmonary disease, unspecified; E78.5 Hyperlipidemia, unspecified; Z79.899 Other long term (current) drug therapy; Z79.51 Long term (current) use of inhaled steroids; Z79.82 Long term (current) use of aspirin
CPT/HCPCS: 71045; 80053; 85025; 93005; 96374; 99285; J1885; 36415

== ENCOUNTER 2024-04-21 17:23 | Observation (INO) | payer OTHER ==
[2024-04-21 18:17] LABS: #Basophils 0.06 10x3/uL (0.0-0.2); %Basophils 1.1 % (0.0-1.0); %Lymphocytes 25.6 % (21.0-51.0); %Monocytes 13.5 % (0.0-10.0); %Neutrophils 53.6 % (42.0-75.0); Hemoglobin 9.2 g/dL (12.0-16.0); Mean Corpuscular HGB CONC 34.1 g/dL (32.0-36.0); Mean Corpuscular Hemoglobin 34.7 pg (27.0-31.0); Mean Corpuscular Volume 101.9 fL (78.0-98.0); Platelet Count 203 10x3/uL (130-400); RBC Distribution Width 13.8 % (11.5-14.5); Red Blood Cell (RBC) Count 2.65 mill/uL (4.20-5.40)
[2024-04-21 18:34] LABS: ALT (SGPT) Less than 5 U/L (8-55); AST (SGOT) 11 U/L (5-34); Albumin 3.3 g/dL (3.4-4.8); Alkaline Phosphatase 69 U/L (40-110); Anion Gap 14 mmol/L (10-20); BUN (Urea Nitrogen) 37 mg/dL (9.8-20.1); Bilirubin, Total 0.5 mg/dL (0.2-1.2); Calc. Creatinine Clearance 0 mL/min (70-130); Calcium 8.3 mg/dL (7.8-10.44); Carbon Dioxide 22 mmol/L (23-31); Chloride 109 mmol/L (98-107); Estimated GFR 18; Glucose 96 mg/dL (83-110); Potassium 4.7 mmol/L (3.5-5.1); Protein, Total 6.3 g/dL (5.8-8.1); Sodium 140 mmol/L (136-145)
[2024-04-21 18:45] LABS: Troponin I 0.013 ng/mL (< 0.028)
[2024-04-21] MEDS ORDERED: Ondansetron PF 4 MG/2 ML Vial IVP PRN (22:37)
[2024-04-21] MEDS ORDERED: Acetaminophen 325 MG TAB PO PRN (22:37)
[2024-04-21 22:42] LABS: Troponin I 0.017 ng/mL (< 0.028)
[2024-04-21 23:32] VITALS: BMI 34.1
[2024-04-21] MEDS: Lactated Ringer's 1,000 ML IV SCH (23:50)
[2024-04-22 02:11] LABS: Troponin I 0.017 ng/mL (< 0.028)
[2024-04-22 02:38] LABS: Bilirubin Negative (Negative); Blood, Urine Negative (Negative); Clarity Clear (Clear); Glucose, Urine (Dipstick) Normal (Negative); Ketone, Urine Negative (Negative); Leukocyte Negative Leu/uL (Negative); Nitrite Negative (Negative); Protein, Urine (Dipstick) Negative (Neg-Trace); RBC/HPF 0-3 HPF (0-3); Specific Gravity, Urine 1.007 (1.002-1.036); Squamous Epithelial 0-3 HPF (0-3); Urobilinogen Normal mg/dL (Less than 2); WBC/HPF 0-3 HPF (0-3)
[2024-04-22 02:40] LABS: Bacteria/HPF Rare-Few HPF (None Seen)
[2024-04-22 05:04] LABS: #Basophils 0.03 10x3/uL (0.0-0.2); %Basophils 0.5 % (0.0-1.0); %Eosinophils 5.4 % (0.0-10.0); %Lymphocytes 34.1 % (21.0-51.0); %Monocytes 14.3 % (0.0-10.0); %Neutrophils 45.5 % (42.0-75.0); Hematocrit 24.5 % (36.0-47.0); Hemoglobin 8.7 g/dL (12.0-16.0); Mean Corpuscular HGB CONC 35.5 g/dL (32.0-36.0); Mean Corpuscular Hemoglobin 36.3 pg (27.0-31.0); Mean Corpuscular Volume 102.1 fL (78.0-98.0); Mean Platelet Volume 9.4 fL (7.4-10.4); Platelet Count 188 10x3/uL (130-400); RBC Distribution Width 13.8 % (11.5-14.5)
[2024-04-22 05:35] LABS: Anion Gap 13 mmol/L (10-20); BUN (Urea Nitrogen) 36 mg/dL (9.8-20.1); Calc. Creatinine Clearance 30 mL/min (70-130); Calcium 8.2 mg/dL (7.8-10.44); Carbon Dioxide 21 mmol/L (23-31); Chloride 114 mmol/L (98-107); Estimated GFR 20; Glucose 81 mg/dL (83-110); Potassium 4.8 mmol/L (3.5-5.1); Sodium 143 mmol/L (136-145)
[2024-04-22] MEDS: Midodrine HCl 5 MG TAB PO SCH (17:39)
[2024-04-22] MEDS ORDERED: Ipratropium/Albuterol 3 ML NEB NEB PRN (20:39)
[2024-04-22] MEDS: Montelukast Sodium 10 mg Tablet PO SCH (20:57)
[2024-04-22] MEDS: Atorvastatin Calcium 10 MG TAB PO SCH (20:57)
[2024-04-22] MEDS: dilTIAZem 30 MG TAB PO SCH (20:57)
[2024-04-22] MEDS: Apixaban 2.5 MG TAB PO SCH (20:57)
[2024-04-23 05:14] LABS: Anion Gap 11 mmol/L (10-20); BUN (Urea Nitrogen) 33 mg/dL (9.8-20.1); Calc. Creatinine Clearance 29 mL/min (70-130); Calcium 8.3 mg/dL (7.8-10.44); Carbon Dioxide 22 mmol/L (23-31); Chloride 112 mmol/L (98-107); Estimated GFR 19; Glucose 81 mg/dL (83-110); Potassium 4.4 mmol/L (3.5-5.1); Sodium 141 mmol/L (136-145)
[2024-04-23] MEDS: Levothyroxine Sodium 50 MCG TAB PO SCH (06:44)
[2024-04-23] MEDS: Mometasone 100 MCG/Formoterol 5 MCG 120 PUFF INHALER INH SCH (07:40)
[2024-04-23] MEDS: Aspirin 81 mg Enteric Coated Tablet PO SCH (09:01)
[2024-04-23 11:54] VITALS: BP 166/77; TEMP 97.8
== END 2024-04-23 12:53 | disposition home or self-care (01) ==
LOC: ERS 17:23 → OBS 21:50
PROVIDERS: ADMIT Internal Medicine; ATTEND Internal Medicine
PROC: B24BZZZ Ultrasonography of Heart with Aorta (ICD-10-PCS; principal; 2024-04-22)
DX: R55 Syncope and collapse (principal); I13.0 Hypertensive heart and chronic kidney disease with heart failure and stage 1 through stage 4 chronic kidney disease, or unspecified chronic kidney disease; I50.30 Unspecified diastolic (congestive) heart failure; N18.4 Chronic kidney disease, stage 4 (severe); E78.5 Hyperlipidemia, unspecified; E03.9 Hypothyroidism, unspecified; J44.9 Chronic obstructive pulmonary disease, unspecified; D51.0 Vitamin B12 deficiency anemia due to intrinsic factor deficiency; F03.90 Unspecified dementia, unspecified severity, without behavioral disturbance, psychotic disturbance, mood disturbance, and anxiety; M19.90 Unspecified osteoarthritis, unspecified site; Z86.711 Personal history of pulmonary embolism; Z90.89 Acquired absence of other organs; Z88.0 Allergy status to penicillin; Z79.890 Hormone replacement therapy; Z79.01 Long term (current) use of anticoagulants; Z79.82 Long term (current) use of aspirin; Z79.51 Long term (current) use of inhaled steroids; Z79.1 Long term (current) use of non-steroidal anti-inflammatories (NSAID); Z79.899 Other long term (current) drug therapy
CPT/HCPCS: 70450; 71045; 74176; 80048 ×2; 80053; 81001; 82533; 82607; 82746; 83880; 84484 ×3; 85025 ×2; 93005; 93306; 94640; 97116; 97530; 99285; G0378 ×4; 36415

== ENCOUNTER 2024-06-26 18:49 | Inpatient (IN) | payer OTHER ==
[2024-06-26 20:22] LABS: #Basophils 0.04 10x3/uL (0.0-0.2); %Basophils 0.7 % (0.0-1.0); %Eosinophils 3.2 % (0.0-10.0); %Lymphocytes 18.9 % (21.0-51.0); Hematocrit 28.5 % (36.0-47.0); Hemoglobin 9.6 g/dL (12.0-16.0); Mean Corpuscular HGB CONC 33.7 g/dL (32.0-36.0); Mean Corpuscular Hemoglobin 34.7 pg (27.0-31.0); Mean Corpuscular Volume 102.9 fL (78.0-98.0); Mean Platelet Volume 8.9 fL (7.4-10.4); Platelet Count 199 10x3/uL (130-400); RBC Distribution Width 14.1 % (11.5-14.5); Red Blood Cell (RBC) Count 2.77 mill/uL (4.20-5.40)
[2024-06-26 20:42] LABS: ALT (SGPT) 5 U/L (8-55); AST (SGOT) 12 U/L (5-34); Albumin 3.5 g/dL (3.4-4.8); Alkaline Phosphatase 75 U/L (40-110); Anion Gap 14 mmol/L (10-20); BUN (Urea Nitrogen) 44 mg/dL (9.8-20.1); Bilirubin, Total 0.4 mg/dL (0.2-1.2); Calc. Creatinine Clearance 0 mL/min (70-130); Calcium 8.4 mg/dL (7.8-10.44); Carbon Dioxide 21 mmol/L (23-31); Chloride 115 mmol/L (98-107); Estimated GFR 17; Glucose 107 mg/dL (83-110); Magnesium 2.4 mg/dL (1.6-2.6); Potassium 5.5 mmol/L (3.5-5.1); Protein, Total 6.5 g/dL (5.8-8.1); Sodium 144 mmol/L (136-145)
[2024-06-26 20:43] LABS: Acetaminophen Less than 10 mcg/mL (Less than 10); Alcohol Less than 10.0 mg/dL (Less than 10); Salicylate Less than 8.0 mg/dL (Less than 8.0)
[2024-06-26 20:47] LABS: Troponin I 0.041 ng/mL (< 0.028)
[2024-06-26] MEDS ORDERED: Aspirin Chewable 81 MG TAB ONE (22:26)
[2024-06-26 23:02] LABS: Amphetamine Not Detected (NotDetected); Barbiturates Screen Not Detected (NotDetected); Benzodiazepine Screen Not Detected (NotDetected); Cocaine Metabolite Screen Not Detected (NotDetected); Methadone Not Detected (NotDetected); Methamphetamine Not Detected (NotDetected); Opiate Screen Not Detected (NotDetected); Oxycodone Screen Not Detected (NotDetected); Phencyclidine (PCP) Not Detected (NotDetected); THC/Cannabinoid Screen Not Detected (NotDetected); Tricyclic Screen Not Detected (NotDetected)
[2024-06-26] MEDS ORDERED: LOKELMA 10 GM PACKET PO SCH (23:30)
[2024-06-27] MEDS ORDERED: Nitroglycerin 0.4 MG TAB (25 Tab Bottle) SL PRN (00:08)
[2024-06-27] MEDS ORDERED: Acetaminophen 325 MG TAB PO PRN (00:08)
[2024-06-27] MEDS ORDERED: Acetaminophen 650 MG Suppository PR PRN (00:08)
[2024-06-27] MEDS ORDERED: LOKELMA 10 GM PACKET ONE (00:20)
[2024-06-27] MEDS ORDERED: Diclofenac 1% 50 GM TOPICAL GEL TP PRN (00:30)
[2024-06-27] MEDS ORDERED: Ipratropium/Albuterol 3 ML NEB NEB PRN (00:30)
[2024-06-27] MEDS ORDERED: Senokot 8.6 MG TAB PO PRN (00:42)
[2024-06-27 01:14] LABS: Troponin I 0.028 ng/mL (< 0.028)
[2024-06-27 01:22] VITALS: BMI 37.0
[2024-06-27] MEDS: Acetaminophen 325 MG TAB PO PRN (01:23)
[2024-06-27] MEDS: Furosemide 40 MG (4 mL) VIAL SLOW IVP SCH (01:24)
[2024-06-27] MEDS: Apixaban 2.5 MG TAB PO SCH ×2 (01:24→09:00)
[2024-06-27] MEDS: Albuterol 2.5 MG (3 mL) NEB NEB SCH (01:41)
[2024-06-27] MEDS: Albuterol 200 PUFF (6.7GM INHALER) INH SCH (02:00)
[2024-06-27 02:12] LABS: #Basophils 0.04 10x3/uL (0.0-0.2); %Basophils 0.7 % (0.0-1.0); %Lymphocytes 30.1 % (21.0-51.0); %Monocytes 11.8 % (0.0-10.0); %Neutrophils 54.2 % (42.0-75.0); Hemoglobin 8.1 g/dL (12.0-16.0); Mean Corpuscular HGB CONC 33.8 g/dL (32.0-36.0); Mean Corpuscular Hemoglobin 34.3 pg (27.0-31.0); Mean Corpuscular Volume 101.7 fL (78.0-98.0); Mean Platelet Volume 9.3 fL (7.4-10.4); Platelet Count 171 10x3/uL (130-400); RBC Distribution Width 13.8 % (11.5-14.5); Red Blood Cell (RBC) Count 2.36 mill/uL (4.20-5.40)
[2024-06-27 02:58] LABS: A1c 134.621 g/dL; Hb (HGBA1c) 4572.2602 umol/L; Hemoglobin A1c 4.8 % (4.0-6.0)
[2024-06-27] MEDS: LOKELMA 10 GM PACKET PO SCH (03:12)
[2024-06-27 03:14] LABS: Anion Gap 13 mmol/L (10-20); BUN (Urea Nitrogen) 36 mg/dL (9.8-20.1); Calc. Creatinine Clearance 30 mL/min (70-130); Calcium 8.2 mg/dL (7.8-10.44); Carbon Dioxide 18 mmol/L (23-31); Cardiac Risk 2.9 (Less than 4.5); Chloride 115 mmol/L (98-107); Cholesterol 100 mg/dl (< 200 Desired); Estimated GFR 19; Glucose 96 mg/dL (83-110); HDL Cholesterol 35 mg/dL (>60 Neg Risk); LDL Cholesterol, Calculated 59 mg/dL; Potassium 5.4 mmol/L (3.5-5.1); Sodium 141 mmol/L (136-145); Triglycerides 28 mg/dL (Less than 150)
[2024-06-27 03:16] LABS: Troponin I 0.028 ng/mL (< 0.028)
[2024-06-27] MEDS: Levothyroxine Sodium 50 MCG TAB PO SCH (05:37)
[2024-06-27] MEDS: Mometasone 100 MCG/Formoterol 5 MCG 120 PUFF INHALER INH SCH (07:18)
[2024-06-27] MEDS: Pantoprazole 40 MG DR.TAB PO SCH (09:00)
[2024-06-27] MEDS: Ferrous Sulfate 325 MG TAB PO SCH (09:00)
[2024-06-27] MEDS ORDERED: dilTIAZem 30 MG TAB PO SCH (09:00)
[2024-06-27] MEDS: Midodrine HCl 5 MG TAB PO SCH (12:30)
[2024-06-27] MEDS: Calcitriol 0.25 MCG CAP PO SCH (16:35)
[2024-06-27] MEDS: Sertraline 100 MG TAB PO SCH (16:35)
[2024-06-27] MEDS: Aspirin 81 mg Enteric Coated Tablet PO SCH (16:35)
[2024-06-27] MEDS: Aspirin Chewable 81 MG TAB PO SCH (17:47)
[2024-06-27] MEDS: Sodium Polystyrene Sulfonate 15 GM (60 mL) BOT PO SCH (20:23)
[2024-06-27] MEDS: Atorvastatin Calcium 10 MG TAB PO SCH (20:24)
[2024-06-27] MEDS: Montelukast Sodium 10 mg Tablet PO SCH (20:24)
[2024-06-28 04:54] LABS: #Basophils 0.04 10x3/uL (0.0-0.2); %Basophils 0.8 % (0.0-1.0); %Eosinophils 4.7 % (0.0-10.0); %Monocytes 13.7 % (0.0-10.0); %Neutrophils 48.6 % (42.0-75.0); Hematocrit 23.9 % (36.0-47.0); Hemoglobin 8.3 g/dL (12.0-16.0); Mean Corpuscular HGB CONC 34.7 g/dL (32.0-36.0); Mean Corpuscular Hemoglobin 35.6 pg (27.0-31.0); Mean Corpuscular Volume 102.6 fL (78.0-98.0); Mean Platelet Volume 9.4 fL (7.4-10.4); Platelet Count 190 10x3/uL (130-400); RBC Distribution Width 13.7 % (11.5-14.5); Red Blood Cell (RBC) Count 2.33 mill/uL (4.20-5.40)
[2024-06-28 05:03] LABS: Anion Gap 11 mmol/L (10-20); BUN (Urea Nitrogen) 40 mg/dL (9.8-20.1); Calc. Creatinine Clearance 27 mL/min (70-130); Calcium 8.1 mg/dL (7.8-10.44); Carbon Dioxide 23 mmol/L (23-31); Chloride 113 mmol/L (98-107); Estimated GFR 17; Glucose 88 mg/dL (83-110); Potassium 4.4 mmol/L (3.5-5.1); Sodium 143 mmol/L (136-145)
[2024-06-29 05:21] LABS: Anion Gap 12 mmol/L (10-20); BUN (Urea Nitrogen) 40 mg/dL (9.8-20.1); Calc. Creatinine Clearance 31 mL/min (70-130); Calcium 8.2 mg/dL (7.8-10.44); Carbon Dioxide 22 mmol/L (23-31); Chloride 113 mmol/L (98-107); Estimated GFR 20; Glucose 80 mg/dL (83-110); Potassium 3.9 mmol/L (3.5-5.1); Sodium 143 mmol/L (136-145)
[2024-06-30 05:14] LABS: Anion Gap 13 mmol/L (10-20); BUN (Urea Nitrogen) 44 mg/dL (9.8-20.1); Calc. Creatinine Clearance 31 mL/min (70-130); Calcium 8.1 mg/dL (7.8-10.44); Carbon Dioxide 23 mmol/L (23-31); Chloride 111 mmol/L (98-107); Estimated GFR 19; Glucose 85 mg/dL (83-110); Potassium 4.1 mmol/L (3.5-5.1); Sodium 143 mmol/L (136-145)
[2024-06-30 16:04] VITALS: BP 170/72; TEMP 97.7
== END 2024-06-30 16:00 | disposition home or self-care (01) | DRG 312 ==
LOC: ERS 18:49 → 2NO 23:21
PROVIDERS: ADMIT Student in an Organized Health Care Education/Training Program; ATTEND Internal Medicine
DX: I95.1 Orthostatic hypotension (principal); I5A Non-ischemic myocardial injury (non-traumatic); I50.32 Chronic diastolic (congestive) heart failure; N18.4 Chronic kidney disease, stage 4 (severe); I13.0 Hypertensive heart and chronic kidney disease with heart failure and stage 1 through stage 4 chronic kidney disease, or unspecified chronic kidney disease; E78.5 Hyperlipidemia, unspecified; E87.5 Hyperkalemia; G47.33 Obstructive sleep apnea (adult) (pediatric); J44.9 Chronic obstructive pulmonary disease, unspecified; F03.90 Unspecified dementia, unspecified severity, without behavioral disturbance, psychotic disturbance, mood disturbance, and anxiety; E03.9 Hypothyroidism, unspecified; Z88.0 Allergy status to penicillin; M19.90 Unspecified osteoarthritis, unspecified site; Z90.89 Acquired absence of other organs; Z79.899 Other long term (current) drug therapy; F41.9 Anxiety disorder, unspecified; E66.01 Morbid (severe) obesity due to excess calories; Z86.711 Personal history of pulmonary embolism; I48.91 Unspecified atrial fibrillation; Z79.01 Long term (current) use of anticoagulants
CPT/HCPCS: 36415; 36416; 71045; 80048; 80053; 80061; 80306; 80307; 82550; 83036; 83605; 83735; 83880; 84443; 84484; 85025; 86850; 86900; 86901; 93005; 94760; J1940

== ENCOUNTER 2025-01-12 00:37 | Inpatient (IN) | payer OTHER ==
[2025-01-12 01:27] LABS: #Basophils 0.05 10x3/uL (0.0-0.2); #Eosinophils 0.31 10x3/uL (0.0-0.7); #Monocytes 0.77 10x3/uL (0.11-0.59); #Neutrophils 3.64 10x3/uL (1.40-6.50); %Basophils 0.8 % (0.0-1.0); %Eosinophils 4.9 % (0.0-10.0); %Lymphocytes 24.3 % (21.0-51.0); %Monocytes 12.2 % (0.0-10.0); %Neutrophils 57.5 % (42.0-75.0); Hematocrit 25.2 % (36.0-47.0); Hemoglobin 8.8 g/dL (12.0-16.0); Mean Corpuscular Hemoglobin 37.4 pg (27.0-31.0); Mean Corpuscular Volume 107.2 fL (78.0-98.0); Platelet Count 192 10x3/uL (130-400); Red Blood Cell (RBC) Count 2.35 mill/uL (4.20-5.40); White Blood Cell (WBC) Count 6.33 10x3/uL (4.8-10.8)
[2025-01-12 02:09] LABS: Troponin I 0.040 ng/mL (< 0.028)
[2025-01-12 02:10] LABS: ALT (SGPT) Less than 7 U/L (Less than 34); AST (SGOT) 14 U/L (11-34); Albumin 3.3 g/dL (3.1-4.5); Alkaline Phosphatase 66 U/L (40-110); Anion Gap 12 mmol/L (10-20); BUN (Urea Nitrogen) 34 mg/dL (9.8-20.1); Bilirubin, Total 0.4 mg/dL (0.3-1.2); CK (CPK) 38 U/L (29-168); Calc. Creatinine Clearance 0 mL/min (70-130); Calcium 8.3 mg/dL (7.8-10.44); Carbon Dioxide 22 mmol/L (23-31); Chloride 113 mmol/L (98-107); Globulin 2.9 g/dL (2.4-3.5); Glucose 112 mg/dL (83-110); Magnesium 2.2 mg/dL (1.6-2.6); Potassium 5.0 mmol/L (3.5-5.1); Sodium 142 mmol/L (136-145)
[2025-01-12] MEDS ORDERED: Calcium Carbonate 500 MG ChewTAB PO PRN (03:49)
[2025-01-12] MEDS ORDERED: Ondansetron PF 4 MG/2 ML Vial IVP PRN (03:49)
[2025-01-12] MEDS ORDERED: Acetaminophen 325 MG TAB PO PRN (03:49)
[2025-01-12 06:06] VITALS: BMI 33.4
[2025-01-12 07:15] LABS: Troponin I 0.044 ng/mL (< 0.028)
[2025-01-12] MEDS: Mometasone 100 MCG/Formoterol 5 MCG 120 PUFF INHALER INH SCH (07:23)
[2025-01-12 09:27] LABS: Troponin I 0.044 ng/mL (< 0.028)
[2025-01-12] MEDS: Calcitriol 0.25 MCG CAP PO SCH (10:13)
[2025-01-12] MEDS: Sertraline 100 MG TAB PO SCH (10:14)
[2025-01-12] MEDS: Gabapentin 100 MG CAP PO SCH (10:14)
[2025-01-12] MEDS: Aspirin 81 mg Enteric Coated Tablet PO SCH (10:14)
[2025-01-12] MEDS: Apixaban 2.5 MG TAB PO SCH (10:14)
[2025-01-12] MEDS ORDERED: Bisacodyl 10 MG SUPP PR PRN (13:27)
[2025-01-12] MEDS ORDERED: Artificial Tear Ophth Sol 15 ML BOT EA EYE PRN (13:27)
[2025-01-12] MEDS ORDERED: Lidocaine 1% w/Epinephrine 1:100K 20 ML VIAL ONE (14:15)
[2025-01-12] MEDS: OLANZapine 5 MG TAB PO PRN (21:15)
[2025-01-12] MEDS: Melatonin 3 MG TAB PO SCH (21:16)
[2025-01-13 03:56] LABS: #Basophils 0.04 10x3/uL (0.0-0.2); #Eosinophils 0.33 10x3/uL (0.0-0.7); #Monocytes 0.62 10x3/uL (0.11-0.59); #Neutrophils 2.35 10x3/uL (1.40-6.50); %Basophils 0.8 % (0.0-1.0); %Eosinophils 6.4 % (0.0-10.0); %Lymphocytes 35.0 % (21.0-51.0); %Monocytes 12.0 % (0.0-10.0); %Neutrophils 45.4 % (42.0-75.0); Hematocrit 25.7 % (36.0-47.0); Hemoglobin 8.9 g/dL (12.0-16.0); Mean Corpuscular Hemoglobin 36.8 pg (27.0-31.0); Mean Corpuscular Volume 106.2 fL (78.0-98.0); Platelet Count 179 10x3/uL (130-400); Red Blood Cell (RBC) Count 2.42 mill/uL (4.20-5.40); White Blood Cell (WBC) Count 5.17 10x3/uL (4.8-10.8)
[2025-01-13 04:14] LABS: ALT (SGPT) Less than 7 U/L (Less than 34); AST (SGOT) 12 U/L (11-34); Albumin 3.0 g/dL (3.1-4.5); Alkaline Phosphatase 63 U/L (40-110); Anion Gap 15 mmol/L (10-20); BUN (Urea Nitrogen) 35 mg/dL (9.8-20.1); Bilirubin, Total 0.4 mg/dL (0.3-1.2); Calc. Creatinine Clearance 28 mL/min (70-130); Calcium 8.7 mg/dL (7.8-10.44); Carbon Dioxide 18 mmol/L (23-31); Chloride 116 mmol/L (98-107); Globulin 2.9 g/dL (2.4-3.5); Glucose 82 mg/dL (83-110); Potassium 4.9 mmol/L (3.5-5.1); Sodium 144 mmol/L (136-145)
[2025-01-13] MEDS: Pantoprazole 40 MG DR.TAB PO SCH (11:22)
[2025-01-14 04:33] LABS: Anion Gap 12 mmol/L (10-20); BUN (Urea Nitrogen) 40 mg/dL (9.8-20.1); Calc. Creatinine Clearance 28 mL/min (70-130); Calcium 8.5 mg/dL (7.8-10.44); Carbon Dioxide 19 mmol/L (23-31); Chloride 115 mmol/L (98-107); Glucose 74 mg/dL (83-110); Potassium 5.3 mmol/L (3.5-5.1); Sodium 141 mmol/L (136-145)
[2025-01-14] MEDS: Sodium Polystyrene Sulfonate 15 GM (60 mL) BOT PO SCH (08:15)
[2025-01-14 11:23] VITALS: TEMP 97.7
[2025-01-14 13:34] VITALS: BP 145/67
== END 2025-01-14 14:35 | disposition home or self-care (01) | DRG 261 ==
LOC: ERS 00:37 → 2SE 03:29
PROVIDERS: ADMIT Student in an Organized Health Care Education/Training Program; ATTEND Internal Medicine
PROC: 0JH602Z Insertion of Monitoring Device into Chest Subcutaneous Tissue and Fascia, Open Approach (ICD-10-PCS; principal; 2025-01-12)
DX: R55 Syncope and collapse (principal); I13.0 Hypertensive heart and chronic kidney disease with heart failure and stage 1 through stage 4 chronic kidney disease, or unspecified chronic kidney disease; I50.32 Chronic diastolic (congestive) heart failure; N18.4 Chronic kidney disease, stage 4 (severe); G47.33 Obstructive sleep apnea (adult) (pediatric); E03.9 Hypothyroidism, unspecified; I48.0 Paroxysmal atrial fibrillation; I95.9 Hypotension, unspecified; Z88.0 Allergy status to penicillin; I25.10 Atherosclerotic heart disease of native coronary artery without angina pectoris; E78.5 Hyperlipidemia, unspecified; J44.9 Chronic obstructive pulmonary disease, unspecified; M19.90 Unspecified osteoarthritis, unspecified site; Z90.89 Acquired absence of other organs; F41.9 Anxiety disorder, unspecified; Z86.711 Personal history of pulmonary embolism; E11.22 Type 2 diabetes mellitus with diabetic chronic kidney disease; D63.1 Anemia in chronic kidney disease; E66.01 Morbid (severe) obesity due to excess calories; Z68.33 Body mass index [BMI] 33.0-33.9, adult; D50.0 Iron deficiency anemia secondary to blood loss (chronic)
CPT/HCPCS: 33285; 36415; 36416; 70551; 80048; 80053; 82550; 83735; 84484; 85025; 93005; 99285; C1764; J7042

== ENCOUNTER 2025-03-08 21:26 | Inpatient (IN) | payer OTHER ==
[2025-03-08 21:46] LABS: #Basophils 0.06 10x3/uL (0.0-0.2); #Eosinophils 0.26 10x3/uL (0.0-0.7); #Monocytes 0.66 10x3/uL (0.11-0.59); #Neutrophils 2.19 10x3/uL (1.40-6.50); %Basophils 1.2 % (0.0-1.0); %Eosinophils 5.1 % (0.0-10.0); %Lymphocytes 37.0 % (21.0-51.0); %Monocytes 13.0 % (0.0-10.0); %Neutrophils 43.3 % (42.0-75.0); Hematocrit 27.5 % (36.0-47.0); Hemoglobin 9.3 g/dL (12.0-16.0); Mean Corpuscular Hemoglobin 35.0 pg (27.0-31.0); Mean Corpuscular Volume 103.4 fL (78.0-98.0); Platelet Count 203 10x3/uL (130-400); Red Blood Cell (RBC) Count 2.66 mill/uL (4.20-5.40); White Blood Cell (WBC) Count 5.06 10x3/uL (4.8-10.8)
[2025-03-08 22:15] LABS: ALT (SGPT) Less than 7 U/L (Less than 34); AST (SGOT) 14 U/L (11-34); Albumin 3.3 g/dL (3.1-4.5); Alkaline Phosphatase 59 U/L (40-110); Anion Gap 15 mmol/L (10-20); BUN (Urea Nitrogen) 38 mg/dL (9.8-20.1); Bilirubin, Total 0.4 mg/dL (0.3-1.2); Calc. Creatinine Clearance 0 mL/min (70-130); Calcium 8.6 mg/dL (7.8-10.44); Carbon Dioxide 24 mmol/L (23-31); Chloride 112 mmol/L (98-107); Globulin 2.9 g/dL (2.4-3.5); Glucose 97 mg/dL (83-110); Potassium 4.7 mmol/L (3.5-5.1); Sodium 146 mmol/L (136-145)
[2025-03-08] MEDS ORDERED: Acetaminophen 325 MG TAB PO PRN (23:59)
[2025-03-09] MEDS ORDERED: Senokot S 8.6-50 MG TAB PO PRN
[2025-03-09] MEDS ORDERED: Calcium Carbonate 500 MG ChewTAB PO PRN
[2025-03-09] MEDS ORDERED: Albuterol 200 PUFF INH INH PRN (00:06)
[2025-03-09 03:05] VITALS: BMI 35.0
[2025-03-09] MEDS: Mometasone 200 MCG/Formoterol 5 MCG 120 PUFF INHALER INH SCH (06:49)
[2025-03-09 07:43] LABS: Bacteria/HPF 1+ HPF (None Seen); Glucose, Urine (Dipstick) Normal (Negative); Leukocyte Negative Leu/uL (Negative); Protein, Urine (Dipstick) Negative (Neg-Trace); RBC/HPF None Seen HPF (0-3); Specific Gravity, Urine 1.012 (1.002-1.036); WBC/HPF 0-3 HPF (0-3)
[2025-03-09 08:00] LABS: Anion Gap 13 mmol/L (10-20); BUN (Urea Nitrogen) 37 mg/dL (9.8-20.1); Calc. Creatinine Clearance 28 mL/min (70-130); Calcium 8.1 mg/dL (7.8-10.44); Carbon Dioxide 16 mmol/L (23-31); Chloride 120 mmol/L (98-107); Glucose 111 mg/dL (83-110); Potassium 4.8 mmol/L (3.5-5.1); Sodium 144 mmol/L (136-145)
[2025-03-09] MEDS: Gabapentin 100 MG CAP PO SCH (08:57)
[2025-03-09] MEDS: Sertraline 100 MG TAB PO SCH (08:57)
[2025-03-09] MEDS: Apixaban 2.5 MG TAB PO SCH (08:57)
[2025-03-09] MEDS: Cyanocobalamin (Vitamin B-12) 1,000 MCG TAB PO SCH (08:57)
[2025-03-09] MEDS: Pantoprazole 40 MG DR.TAB PO SCH (08:57)
[2025-03-09] MEDS: QUEtiapine 25 MG TAB PO SCH (22:06)
[2025-03-10 03:47] LABS: #Basophils 0.05 10x3/uL (0.0-0.2); #Eosinophils 0.22 10x3/uL (0.0-0.7); #Monocytes 0.59 10x3/uL (0.11-0.59); #Neutrophils 1.80 10x3/uL (1.40-6.50); %Basophils 1.1 % (0.0-1.0); %Eosinophils 4.9 % (0.0-10.0); %Lymphocytes 40.8 % (21.0-51.0); %Monocytes 13.1 % (0.0-10.0); %Neutrophils 39.9 % (42.0-75.0); Hematocrit 23.6 % (36.0-47.0); Hemoglobin 8.0 g/dL (12.0-16.0); Mean Corpuscular Hemoglobin 34.5 pg (27.0-31.0); Mean Corpuscular Volume 101.7 fL (78.0-98.0); Platelet Count 162 10x3/uL (130-400); Red Blood Cell (RBC) Count 2.32 mill/uL (4.20-5.40); White Blood Cell (WBC) Count 4.51 10x3/uL (4.8-10.8)
[2025-03-10 04:22] LABS: Anion Gap 13 mmol/L (10-20); BUN (Urea Nitrogen) 37 mg/dL (9.8-20.1); Calc. Creatinine Clearance 32 mL/min (70-130); Calcium 7.9 mg/dL (7.8-10.44); Carbon Dioxide 21 mmol/L (23-31); Chloride 114 mmol/L (98-107); Glucose 74 mg/dL (83-110); Potassium 4.6 mmol/L (3.5-5.1); Sodium 143 mmol/L (136-145)
[2025-03-10] MEDS: FLU (Fluad Triv) 25-26 (65UP)PF 45 MCG/0.5 ML Syringe IM ONE (23:50)
[2025-03-11 07:50] LABS: #Basophils 0.04 10x3/uL (0.0-0.2); #Eosinophils 0.27 10x3/uL (0.0-0.7); #Monocytes 0.68 10x3/uL (0.11-0.59); #Neutrophils 1.44 10x3/uL (1.40-6.50); %Basophils 1.0 % (0.0-1.0); %Eosinophils 7.0 % (0.0-10.0); %Lymphocytes 36.7 % (21.0-51.0); %Monocytes 17.7 % (0.0-10.0); %Neutrophils 37.6 % (42.0-75.0); Hematocrit 25.4 % (36.0-47.0); Hemoglobin 8.2 g/dL (12.0-16.0); Mean Corpuscular Hemoglobin 34.2 pg (27.0-31.0); Mean Corpuscular Volume 105.8 fL (78.0-98.0); Platelet Count 173 10x3/uL (130-400); Red Blood Cell (RBC) Count 2.40 mill/uL (4.20-5.40); White Blood Cell (WBC) Count 3.84 10x3/uL (4.8-10.8)
[2025-03-11 08:06] LABS: Anion Gap 13 mmol/L (10-20); BUN (Urea Nitrogen) 38 mg/dL (9.8-20.1); Calc. Creatinine Clearance 31 mL/min (70-130); Calcium 8.0 mg/dL (7.8-10.44); Carbon Dioxide 21 mmol/L (23-31); Chloride 112 mmol/L (98-107); Glucose 70 mg/dL (83-110); Potassium 4.8 mmol/L (3.5-5.1); Sodium 141 mmol/L (136-145)
[2025-03-11 22:43] VITALS: BP 156/70; TEMP 98.4
== END 2025-03-11 18:16 | disposition home or self-care (01) | DRG 312 ==
LOC: ERS 21:26 → 2SE 23:19
PROVIDERS: ADMIT Internal Medicine; ATTEND Internal Medicine
PROC: 4A00X4Z Measurement of Central Nervous Electrical Activity, External Approach (ICD-10-PCS; principal; 2025-03-09)
DX: I95.1 Orthostatic hypotension (principal); I50.32 Chronic diastolic (congestive) heart failure; I13.0 Hypertensive heart and chronic kidney disease with heart failure and stage 1 through stage 4 chronic kidney disease, or unspecified chronic kidney disease; N17.9 Acute kidney failure, unspecified; E87.0 Hyperosmolality and hypernatremia; N18.4 Chronic kidney disease, stage 4 (severe); I48.0 Paroxysmal atrial fibrillation; E78.5 Hyperlipidemia, unspecified; E03.9 Hypothyroidism, unspecified; M19.90 Unspecified osteoarthritis, unspecified site; E86.0 Dehydration; D63.1 Anemia in chronic kidney disease; F03.90 Unspecified dementia, unspecified severity, without behavioral disturbance, psychotic disturbance, mood disturbance, and anxiety; F32.A Depression, unspecified; J45.909 Unspecified asthma, uncomplicated; J44.9 Chronic obstructive pulmonary disease, unspecified; F41.9 Anxiety disorder, unspecified; K21.9 Gastro-esophageal reflux disease without esophagitis; E66.01 Morbid (severe) obesity due to excess calories; E53.8 Deficiency of other specified B group vitamins; Z88.0 Allergy status to penicillin; Z86.711 Personal history of pulmonary embolism; Z98.890 Other specified postprocedural states; Z79.82 Long term (current) use of aspirin; Z79.52 Long term (current) use of systemic steroids; Z79.899 Other long term (current) drug therapy; Z79.890 Hormone replacement therapy
CPT/HCPCS: 36415; 36416; 71045; 80048; 80053; 81001; 84484; 85025; 87086; 93005; 93306; 94660; 95700; 95711; 95957; 96360; J7030; J7120

== ENCOUNTER 2025-03-22 18:27 | Emergency (ER) | payer OTHER ==
[2025-03-22 19:24] LABS: #Basophils Less than 0.03 10x3/uL (0.0-0.2); #Eosinophils 0.15 10x3/uL (0.0-0.7); #Monocytes 0.91 10x3/uL (0.11-0.59); #Neutrophils 4.20 10x3/uL (1.40-6.50); %Basophils 0.3 % (0.0-1.0); %Eosinophils 2.1 % (0.0-10.0); %Lymphocytes 24.7 % (21.0-51.0); %Monocytes 12.9 % (0.0-10.0); %Neutrophils 59.6 % (42.0-75.0); Hematocrit 26.0 % (36.0-47.0); Hemoglobin 8.7 g/dL (12.0-16.0); Mean Corpuscular Hemoglobin 33.7 pg (27.0-31.0); Mean Corpuscular Volume 100.8 fL (78.0-98.0); Platelet Count 236 10x3/uL (130-400); Red Blood Cell (RBC) Count 2.58 mill/uL (4.20-5.40); White Blood Cell (WBC) Count 7.05 10x3/uL (4.8-10.8)
[2025-03-22] MEDS ORDERED: Acetaminophen 325 MG TAB ONE (19:47)
[2025-03-22 19:51] LABS: ALT (SGPT) Less than 7 U/L (Less than 34); AST (SGOT) 15 U/L (11-34); Albumin 2.9 g/dL (3.1-4.5); Alkaline Phosphatase 49 U/L (40-110); Anion Gap 13 mmol/L (10-20); BUN (Urea Nitrogen) 47 mg/dL (9.8-20.1); Bilirubin, Total 0.4 mg/dL (0.3-1.2); Calc. Creatinine Clearance 0 mL/min (70-130); Calcium 7.7 mg/dL (7.8-10.44); Carbon Dioxide 20 mmol/L (23-31); Chloride 114 mmol/L (98-107); Globulin 2.5 g/dL (2.4-3.5); Glucose 78 mg/dL (83-110); Potassium 4.5 mmol/L (3.5-5.1); Sodium 142 mmol/L (136-145)
== END 2025-03-22 22:15 | disposition home or self-care (01) ==
LOC: ERS 18:27
DX: R55 Syncope and collapse (principal); I25.10 Atherosclerotic heart disease of native coronary artery without angina pectoris; E78.5 Hyperlipidemia, unspecified; I10 Essential (primary) hypertension; J44.9 Chronic obstructive pulmonary disease, unspecified; N28.9 Disorder of kidney and ureter, unspecified; D64.9 Anemia, unspecified; I26.99 Other pulmonary embolism without acute cor pulmonale; E89.0 Postprocedural hypothyroidism; Z79.82 Long term (current) use of aspirin; Z79.899 Other long term (current) drug therapy
CPT/HCPCS: 36415; 71045; 80053; 83605; 83880; 84484; 85025; 93005